=== PATIENT | male | born 2000 | race Caucasian/White ===

== ENCOUNTER 2024-03-26 05:56 | Emergency (ER) | payer SELFPAY ==
[2024-03-26 06:06] VITALS: BP 140/92; PULSE 110; O2SAT 99
[2024-03-26 06:09] VITALS: BP 127/87; PULSE 110; RESP 16; TEMP 36.8; O2SAT 97; BMI 17.6
--- NOTE | 2024-03-26 06:33 | ED.GENADULT ---
HPI - General Adult General Chief complaint: General Medical Stated complaint: drug abuse Time Seen by Provider: 03/26/24 06:33 Source: patient and EMS Mode of arrival: EMS Limitations: other (drug use) History of Present Illness HPI narrative: 23 y/o male presents to the ER via EMS for evaluation of drug use. He was found wandering the streets after using multiple substances including mushrooms, ana and alcohol. Patient states he was using the drugs and a house with his drug dealer who he knows well. Does not remember how he ended up outside walking on the streets. He does not remember how he got there. He admits to drinking a lot of alcohol. He denies any falls, trauma or any pain anywhere. He states he feels like he is starting to come down from the drugs. He wants to take a nap. He denies any suicidal or homicidal thoughts. States he has a history of bipolar and has been compliant with his medications. MD complaint: Drug use Onset (ago): hour(s) Relieving factors: none Exacerbating factors: none Associated symptoms: denies other symptoms Treatments prior to arrival: none Related Data Allergies Allergy/AdvReac Type Severity Reaction Status Date / Time amoxicillin Allergy Swelling Verified 03/26/24 06:13 Penicillins Allergy Swelling Verified 03/26/24 06:13 Review of Systems Review of Systems: Yes all other systems are reviewed and are negative [facility] Social History Social History Alcohol intake: current Alcohol intake frequency: a few times a week Smoked in Last 30 Days: Yes Use of substances other than those prescribed or required for medical reasons: Yes Advance Directives: Yes Advance Directives Information Provided: Yes Advance Directives on File: No Physical Exam ED Vital Signs: Vital Signs - 24 hr 03/26/24 06:09 03/26/24 09:25 Temperature 98.2 F 97.2 F Pulse Rate 110 H 100 Respiratory Rate 16 16 Blood Pressure 127/87 101/58 L Pulse Oximetry 97 97 Oxygen Delivery Method Room Air Room Air BMI result Body Mass Index 17.6 Appearance: Sleeping comfortably on the stretcher. Oriented X3. No acute distress. Head: normocephalic, atraumatic. Eyes: Pupils equal, round and reactive to light. ENT: Pharynx normal. No tonsillar swelling or exudate. Neck: Normal inspection. Neck supple. CVS: Normal heart rate and rhythm. Pulses normal. Respiratory: No respiratory distress. Breath sounds normal. Abdomen: Soft and nontender. +BS x4 Skin: Skin warm and dry. Normal skin color. Normal skin turgor. No rashes. Extremities: No lower extremity edema. No joint swelling. Neuro/psych: Oriented X 3. No motor deficit. No sensory deficit. CN II-XII intact. Normal speech and cognition. Medical Decision Making Medical Decision Making MDM Narrative: 23 yo male presents to the ER for evaluation after he was found wandering the streets after drinking and using multiple substances. He has been calm and cooperative in the emergency department he is oriented x3, speaking in complete sentences. No evidence of trauma on examination. He has been observed in the ER for 2 hours. He is clinically sober with normal speech and cognition. He has a steady gait. At this time is stable for discharge home. He was advised to stop using illicit substances and continue his psych meds. He denies any suicidal or homicidal thoughts. Lives in an apartment alone and has a safe place to go. He is stable for discharge. he declines wanting to speak with anyone from recovery. Differential Diagnosis Differential Diagnoses: The differential diagnosis associated with the presentation includes acute intoxication, substance induced mood disorder, PTSD, bipolar disorder, major depression with psychotic features Admission/Observation Consideration of admission/observation: Escalation of care including admission/observation considered Independent Historian Clinical information obtained from an independent historian. History obtained from or confirmed by: EMS Chronic Conditions Patient?s care impacted by: Other (chronic substance abuse) Social Determinants Patient?s care significantly limited by Social Determinants of Health including: Alcoholism and drug addiction in family, Problems related to primary support group and Other Social Determinant of Health Critical Care Time Critical Care Time Critical Care Time: No Discharge Plan Discharge Clinical Impression: Polysubstance abuse Patient Disposition: Home, Self-Care Instructions: Polysubstance Abuse (ED) Additional Instructions: DO NOT USE ILLICIT DRUGS Take all of your psych meds as directed If you develop new or worsening symptoms call 911 or come back to the ER for further evaluation. Interventions: ED Discharge Assessment Last Done: 03/26/24 09:25 Discharge Date/Time: 03/26/24 09:43 Print Language: Cymraes
[2024-03-26 09:25] VITALS: BP 101/58; PULSE 100; RESP 16; TEMP 36.2; O2SAT 97
== END 2024-03-26 09:43 | disposition home or self-care (01) ==
PROVIDERS: Emergency Provider Student in an Organized Health Care Education/Training Program
DX: F19.10 Other psychoactive substance abuse, uncomplicated (principal)
CPT/HCPCS: 99282; 99283

== ENCOUNTER 2024-06-16 18:21 | Inpatient (IN) | payer SELFPAY ==
--- NOTE | ~2024-06-16 | CT_ITS ---
EXAMINATION: CT HEAD WITHOUT CONTRAST CLINICAL INFORMATION: Altered mental status. Cocaine use. COMPARISON: None available. TECHNIQUE: Contiguous axial imaging was performed from the skull base to vertex without intravenous administration of contrast. This CT examination was performed using dose optimization techniques as appropriate, variously including the following: *Automated exposure control *Adjustment of mA and/or kV according to patient size (this includes techniques or standardized protocols for targeted exams where dose is matched to indication/reason for exam; i.e. extremities or head) *Use of iterative reconstruction technique DLP: 636 mGy-cm FINDINGS: There is no acute intracranial hemorrhage. There is no evidence of acute/subacute cerebral or cerebellar infarction. There is no midline shift or mass effect. No extra-axial fluid collection. The ventricles are normal in size. The orbits are symmetric and within normal limits. The visualized paranasal sinuses are clear. The mastoid air cells are clear. CT/CT head/brain wo IV con IMPRESSION: No acute intracranial abnormality.
--- NOTE | ~2024-06-16 | XR_ITS ---
EXAMINATION: XR CHEST CLINICAL INFORMATION: Fever. COMPARISON: None available. TECHNIQUE: Frontal view of the chest was obtained. FINDINGS: The lungs are clear. The cardiomediastinal silhouette is normal in size. There is no pleural effusion or pneumothorax. No acute osseous abnormality. XR/XR chest 1V IMPRESSION: No acute cardiopulmonary findings.
[2024-06-16] MEDS: LORazepam 2 MG/ML VIAL IVPUSH ×5 (18:32→21:01)
--- NOTE | 2024-06-16 18:32 | ED_ITS ---
HPI - General Adult General Chief complaint: ETOH/Substance Use Stated complaint: back pain, cocaine use Time Seen by Provider: 06/16/24 18:32 History of Present Illness ED Provider: Dania THOMPSON narrative: The patient is a 23-year-old male who was brought to the hospital by ambulance after being apparently found naked in the park by police. He was apparently out in the sun and a hot day. He said that he has been using cocaine and was initially awake and alert with paramedics. He told paramedics that he had been doing cocaine. He was cooperative with the paramedics who helped him come to the hospital. As soon as they arrived at the hospital he started having seizure-like activity and was profoundly diaphoretic. The patient says that he has from [place], [place]. He says that he has a history of bipolar disorder and has been prescribed many medications in the past but he is not currently taking any medications. Related Data Allergies Allergy/AdvReac Type Severity Reaction Status Date / Time amoxicillin Allergy Swelling Verified 06/16/24 18:37 Penicillins Allergy Swelling Verified 06/16/24 18:37 Review of Systems 2 Review of Systems: Yes all other systems are reviewed and are negative [facility] Social History Social History Alcohol intake: current Alcohol intake frequency: a few times a week Advance Directives: No Advance Directives Information Provided: No Physical Exam ED Vital Signs: Vital Signs - 24 hr 06/16/24 18:36 06/16/24 18:51 06/16/24 19:03 Temperature 101.8 F H Pulse Rate 97 156 H 154 H Respiratory Rate 22 H 27 H 27 H Blood Pressure 161/98 H 150/90 H 127/94 H Pulse Oximetry 98 93 Oxygen Delivery Method Room Air Room Air Room Air 06/16/24 19:39 06/16/24 21:17 Temperature 101.2 F H 101.0 F H Pulse Rate 144 H 129 H Respiratory Rate 28 H 22 H Blood Pressure 141/89 H Pulse Oximetry 97 97 Oxygen Delivery Method Room Air Room Air BMI result Body Mass Index 22.9 Const Other: When I 1st encountered the patient he was on the ambulance stretcher exhibiting abnormal movements that had some resemblance to seizure-like activity but it was not clear that that he was actually having a seizure. He seemed to possibly be making eye contact during the abnormal movements and he did not have any definite postictal phase. He was profoundly diaphoretic. He seemed confused. HENMT Other: No signs of trauma to the head or the face. Mucous membranes were not obviously dry. Tongue was midline. Face was symmetrical. Eyes Other: Pupils were dilated. Pupils are equal. Conjunctivae mildly injected. Neck Other: No JVD, no nuchal rigidity Resp Other: The patient was mildly tachypneic. Breath sounds were clear. Cardio Rate: tachycardic Rhythm: regular rhythm Heart sounds: S1 normal heart sound present and S2 normal heart sound present GI Other: Abdomen is soft and not apparently tender. Skin Other: The patient was profusely diaphoretic Neuro Other: The patient initially seemed to have some abnormal movements and a confused mental status. Later he seemed somewhat more coherent and was able to tell me that he was from [place], [place] and that he has been prescribed bipolar medications in the past. His pupils were dilated. No facial asymmetry. No significant slurring of his speech although there was very little speech content. He seemed to have symmetrical tone in his extremities. No lateralizing findings. Extrem Other: No signs of trauma to the extremities Medications Administered Discontinued Medications Generic Name Dose Route Start Last Admin Trade Name Freq PRN Reason Stop Dose Admin Sodium Chloride 1,000 mls @ 999 mls/hr 06/16/24 18:45 06/16/24 19:40 Ns IV 06/16/24 19:45 Infused .Q1H1M [place] Infusion Sodium Chloride 1,000 mls @ 999 mls/hr 06/16/24 19:45 06/16/24 20:57 Ns IV 06/16/24 20:45 Infused .Q1H1M [place] In[facility] Ceftriaxone Sodium 1 gm/ 50 mls @ 100 mls/hr 06/16/24 20:25 06/16/24 21:35 Sodium Chloride IV 06/16/24 20:54 Infused ONCE ONE Infusion Azithromycin 500 mg/ Sodium 250 mls @ 125 mls/hr 06/16/24 20:25 06/16/24 21:25 Chloride IV 06/16/24 22:24 125 mls/hr ONCE ONE Administration Lorazepam 2 mg 06/16/24 18:32 06/16/24 18:32 Lorazepam 2 Mg/Ml Vial IVPUSH 06/16/24 18:33 2 mg ONCE ONE Administration Lorazepam 2 mg 06/16/24 18:35 06/16/24 18:42 Lorazepam 2 Mg/Ml Vial IVPUSH 06/16/24 18:36 2 mg ONCE ONE Administration Lorazepam 2 mg 06/16/24 18:47 06/16/24 18:49 Lorazepam 2 Mg/Ml Vial IVPUSH 06/16/24 18:48 2 mg ONCE ONE Administration Lorazepam 2 mg 06/16/24 19:42 06/16/24 19:54 Lorazepam 2 Mg/Ml Vial IVPUSH 06/16/24 19:43 2 mg ONCE ONE Administration Lorazepam 2 mg 06/16/24 20:30 06/16/24 21:01 Lorazepam 2 Mg/Ml Vial IVPUSH 06/16/24 20:31 2 mg ONCE ONE Administration Medical Decision Making Medical Decision Making [facility] Narrative: The patient is a 23-year-old male who presents after being [place] in the heat and apparently having used cocaine. There was a brief episode of abnormal movements that suggested possible seizure- like activity although it was not clear was an actual seizure. His pupils are dilated. He is tachycardic and was hypertensive and hyperthermic. The patient was seen promptly and given multiple doses of IV lorazepam and IV fluids. He was given ice packs for cooling. Labs showed the patient was acidotic with a venous pH of 7.09. His metabolic panel showed a carbon dioxide of 14, an anion gap of 35, a BUN 17, and creatinine of 1.75. The patient was kept on a monitor. He remained tachycardic. He was started on IV antibiotics although I suspect that his fever is more of a cocaine reaction rather than an indication of an infection. His lactate was normal. Repeat labs were done a couple of hours after his initial labs. His acidosis seemed to entirely resolved. His repeat pH on venous blood gas was 7.47. A repeat basic metabolic panel showed an improvement of his carbon dioxide from 14 to 20. His anion gap of 35 resolved. His repeat anion gap was 15. The initial finding of a possible acute kidney injury also resolved. His repeat creatinine was 0.97. Repeat BUN 14. Repeat CPK 319, repeat troponin 20.7. The patient was clearly sedated after multiple doses of IV lorazepam. He will be admitted for further care. Lab Data 06/16/24 18:41 06/16/24 21:24 Labs: Lab Results 06/16/24 06/16/24 06/16/24 Range/Units 18:33 18:41 18:45 WBC 24.5 H (4.8-10.8) X10*3/uL RBC 5.52 (4.60-5.80) X10*6/uL Hgb 17.0 (14.0-18.0) g/dl Hct 50.8 (42.0-52.0) % MCV 92.0 (80.0-98.0) fL MCH 30.8 (27.0-33.0) pg MCHC 33.5 (31.0-36.0) g/dl RDW 11.3 (11.0-16.0) % Plt Count 426 H (160-400) X10*3/uL MPV 9.8 (9.4-12.4) fL Immature Gran % (Auto) 2.1 H (0.0-0.4) % Neut % (Auto) 76.6 H (45-73) % Lymph % (Auto) 11.9 L (20-40) % Benzie % (Auto) 8.9 (2-11) % Eos % (Auto) 0.1 (0-4) % Baso % (Auto) 0.4 (0-2) % Lymph # (Auto) 2.9 (1.2-4.9) X10*3/uL Benzie # (Auto) 2.2 H (0.1-1.2) X10*3/uL Eos # (Auto) 0.0 (0.0-0.4) X10*3/uL Baso # (Auto) 0.1 (0.0-0.2) X10*3/uL Abs Immat Gran (auto) 0.51 H (0.00-0.03) X10*3/uL Absolute Neuts (auto) 18.8 H (2.0-8.3) x10*3/uL Absolute Nucleated RBC 0.000 (0.0-0.012) X10*3/uL Nucleated RBC % (auto) 0.0 (0.0-0.2) /100WBC Smear Tech's Comments VERIFIED PT 14.4 H (11.1-13.3) SEC INR 1.2 H (0.9-1.1) VBG pH 7.09 L* (7.32-7.43) VBG pCO2 39 mmHg VBG pO2 75 mmHg VBG HCO3 12 L (22-26) mmol/L VBG O2 Saturation 88.0 % VBG Base Excess -16.6 mmol/L Sodium 146 H (135-145) mmol/L Potassium 4.1 (3.3-5.1) mmol/L Chloride 101 (96-108) mmol/L Carbon Dioxide 14 L (22-29) mmol/L Anion Gap 35 H (12-20) BUN 17 H (9-16) mg/dL Creatinine 1.75 H (0.5-1.4) mg/dL Estim Creat Clear Calc 62.7 Estimated GFR 48 POC Glucose 238 H (60-115) mg/dL Random Glucose 245 H (60-115) mg/dL Osmolality (281-305) mosm/kg Lactic Acid (0.5-2.0) mmol/L Calcium 11.3 H (8.4-10.2) mg/dL Magnesium 2.3 (1.6-2.6) mg/dL Total Bilirubin 0.5 (0.0-1.0) mg/dL Direct Bilirubin 0.2 (0.0-0.5) mg/dL AST 52 H (5-37) U/L ALT 35 (0-40) U/L Alkaline Phosphatase 102 (39-117) U/L Total Creatine Kinase 215 H (38-174) U/L Troponin I High Sens 7.5 (<3.5-35.0) ng/L Total Protein 8.9 H (6.5-8.0) g/dL Albumin 5.2 H (3.5-5.0) g/dL Salicylates (15-30) mg/dL Acetaminophen (<30) mcg/mL Ethyl Alcohol < 10 mg/dL 06/16/24 06/16/24 06/16/24 Range/Units 20:06 21:24 21:26 WBC (4.8-10.8) X10*3/uL RBC (4.60-5.80) X10*6/uL Hgb (14.0-18.0) g/dl Hct (42.0-52.0) % MCV (80.0-98.0) fL MCH (27.0-33.0) pg MCHC (31.0-36.0) g/dl RDW (11.0-16.0) % Plt Count (160-400) X10*3/uL MPV (9.4-12.4) fL Immature Gran % (Auto) (0.0-0.4) % Neut % (Auto) (45-73) % Lymph % (Auto) (20-40) % Benzie % (Auto) (2-11) % Eos % (Auto) (0-4) % Baso % (Auto) (0-2) % Lymph # (Auto) (1.2-4.9) X10*3/uL Benzie # (Auto) (0.1-1.2) X10*3/uL Eos # (Auto) (0.0-0.4) X10*3/uL Baso # (Auto) (0.0-0.2) X10*3/uL Abs Immat Gran (auto) (0.00-0.03) X10*3/uL Absolute Neuts (auto) (2.0-8.3) x10*3/uL Absolute Nucleated RBC (0.0-0.012) X10*3/uL Nucleated RBC % (auto) (0.0-0.2) /100WBC Smear Tech's Comments PT (11.1-13.3) SEC INR (0.9-1.1) VBG pH 7.47 H (7.32-7.43) VBG pCO2 25 mmHg VBG pO2 178 mmHg VBG HCO3 19 L (22-26) mmol/L VBG O2 Saturation 99.0 % VBG Base Excess -2.9 mmol/L Sodium 143 (135-145) mmol/L Potassium 3.8 (3.3-5.1) mmol/L Chloride 112 H (96-108) mmol/L Carbon Dioxide 20 L (22-29) mmol/L Anion Gap 15 (12-20) BUN 14 (9-16) mg/dL Creatinine 0.97 (0.5-1.4) mg/dL Estim Creat Clear Calc 113.2 Estimated GFR > 60 POC Glucose (60-115) mg/dL Random Glucose 112 (60-115) mg/dL Osmolality 302 (281-305) mosm/kg Lactic Acid 1.3 (0.5-2.0) mmol/L Calcium 8.9 D (8.4-10.2) mg/dL Magnesium (1.6-2.6) mg/dL Total Bilirubin (0.0-1.0) mg/dL Direct Bilirubin (0.0-0.5) mg/dL AST (5-37) U/L ALT (0-40) U/L Alkaline Phosphatase (39-117) U/L Total Creatine Kinase 319 H (38-174) U/L Troponin I High Sens 20.7 D (<3.5-35.0) ng/L Total Protein (6.5-8.0) g/dL Albumin (3.5-5.0) g/dL Salicylates < 5.0 L (15-30) mg/dL Acetaminophen < 3 (<30) mcg/mL Ethyl Alcohol mg/dL Critical Care Time Critical Care Time Critical Care Time: Yes Total Critical Care Time: 35 Attestation: The patient was critically ill with a high probability of imminent or life- threatening deterioration. ?I spent greater than 30 minutes of discontinuous time evaluating the patient, delivering critical care at the bedside, discussing evaluating data with consultants. ?Critical care time does not include time spent performing separately billable procedures or teaching. ?Time spent performing critical care with 35 minutes. Discharge Plan Discharge Clinical Impression: Adverse effect of sympathomimetics, Cocaine use, Metabolic acidosis, Hyperthermia Patient Disposition: Admitted As Inpatient
--- NOTE | 2024-06-16 18:33 | ECG_ITS ---
Test Reason : TACHY Blood Pressure : / mmHG Vent. Rate : 152 BPM Atrial Rate : 153 BPM P-R Int : 096 ms QRS Dur : 114 ms QT Int : 338 ms P-R-T Axes : 000 094 052 degrees QTc Int : 537 ms Sinus tachycardia with short IA Rightward axis Cannot rule out Anterior infarct , age undetermined Abnormal ECG No previous ECGs available Referred By: Beny Najera Electronically Signed By:BENJI DANIELSON MD
[2024-06-16] MEDS: 0.9 % Sodium Chloride 1,000 ML 999 ML IV ×2 (18:35→19:55)
[2024-06-16 18:36] VITALS: BP 148/86; BP 161/98; PULSE 160; PULSE 97; RESP 22; O2SAT 98; BMI 22.9
[2024-06-16 18:51] VITALS: BP 150/90; PULSE 156; RESP 27; O2SAT 93
[2024-06-16 18:52] LABS: Basophils Absolute Auto 0.1 X10*3/uL (0.0-0.2); Basophils Percent Auto 0.4 % (0-2); Eosinophils Percent Auto 0.1 % (0-4); Hematocrit 50.8 % (42.0-52.0); Imm Gran Abs Auto 0.51 X10*3/uL (0.00-0.03); Imm Gran Pct Auto 2.1 % (0.0-0.4); Lymphocytes Absolute Auto 2.9 X10*3/uL (1.2-4.9); Lymphocytes Percent Auto 11.9 % (20-40); MANUAL DIFF FLAG SCAN; Mean Corpuscular HGB Conc 33.5 g/dl (31.0-36.0); Mean Corpuscular Hemoglobin 30.8 pg (27.0-33.0); Mean Platelet Volume 9.8 fL (9.4-12.4); Monocytes Absolute Auto 2.2 X10*3/uL (0.1-1.2); Monocytes Percent Auto 8.9 % (2-11); Neutrophils Absolute Auto 18.8 x10*3/uL (2.0-8.3); Neutrophils Percent Auto 76.6 % (45-73); Platelet Count 426 X10*3/uL (160-400); Red Blood Count 5.52 X10*6/uL (4.60-5.80); Red Cell Distribution Width 11.3 % (11.0-16.0); SCAN SMEAR FLAG 1
[2024-06-16 18:57] LABS: INTERNATIONAL NORM RATIO 1.2 (0.9-1.1); Prothrombin Time 14.4 SEC (11.1-13.3); Venous Blood Gas Refer to POC result
[2024-06-16 18:57] LABS: VBG Base Excess -16.6 mmol/L; VBG HCO3 12 mmol/L (22-26); VBG pCO2 39 mmHg; VBG pH 7.09 (7.32-7.43); VBG pO2 75 mmHg
[2024-06-16 19:03] VITALS: BP 127/94; PULSE 154; RESP 27; TEMP 38.8
[2024-06-16 19:14] LABS: SLIDE REVIEW VERIFIED; White Blood Count 24.5 X10*3/uL (4.8-10.8)
[2024-06-16 19:18] LABS: Troponin-I High Sensitivity 7.5 ng/L (<3.5-35.0)
--- NOTE | 2024-06-16 19:31 | PC.NURSE ---
Pt c&a requesting me to fix the TV in room. Pt placed back on bedside monitor. Pt changed into hospital attire. Plan of care ongoing.
--- NOTE | 2024-06-16 19:37 | MHC.EDTECH ---
Patient did not came with any clothing ,was given hospital attire ,Patient is aware of were he is .
[2024-06-16 19:39] VITALS: BP 141/89; PULSE 144; RESP 28; TEMP 38.4; O2SAT 97
[2024-06-16 19:42] LABS: Alanine Aminotransferase 35 U/L (0-40); Albumin Level 5.2 g/dL (3.5-5.0); Alkaline Phosphatase 102 U/L (39-117); Anion Gap 35 (12-20); Aspartate Amino Transferase 52 U/L (5-37); Bilirubin Direct 0.2 mg/dL (0.0-0.5); Bilirubin Total 0.5 mg/dL (0.0-1.0); Blood Urea Nitrogen 17 mg/dL (9-16); Calcium 11.3 mg/dL (8.4-10.2); Carbon Dioxide 14 mmol/L (22-29); Chloride 101 mmol/L (96-108); Creatinine Clr Calc Pharmacy 62.7; Estimated Glomerular Filt Rate 48; Glucose Random 245 mg/dL (60-115); Magnesium 2.3 mg/dL (1.6-2.6); Potassium 4.1 mmol/L (3.3-5.1); Sodium 146 mmol/L (135-145); Total Protein 8.9 g/dL (6.5-8.0)
--- NOTE | 2024-06-16 19:43 | PC.NURSE ---
Provider Tor aware of pts vitals HR 135, R28 T101.2. Plan of care ongoing.
[2024-06-16 20:03] LABS: Ethanol < 10 mg/dL
--- NOTE | 2024-06-16 20:04 | PC.NURSE ---
Pt medicated per mar. Cold packs placed on pt per provider Tor. Plan of care ongoing.
--- NOTE | 2024-06-16 20:16 | MHC.EDTECH ---
Patient blood and and both sets of culture and lactic acid all sent to lab ,Patient belonging list done .
[2024-06-16 20:18] LABS: Glucose, Whole Blood 238 mg/dL (60-115)
[2024-06-16 20:28] LABS: Lactic Acid 1.3 mmol/L (0.5-2.0)
[2024-06-16] MEDS: cefTRIAXone sodium 1 GM in 0.9 % Sodium Chloride 50 ML IV (21:03)
--- NOTE | 2024-06-16 21:09 | PC.NURSE ---
Pt medicated per jan. Pt pulling at wires and blanket and attempting to put them in his mouth. Pt also attempting to get out of bed. Pt redirected back into bed. Plan of care ongoing.
[2024-06-16 21:17] VITALS: PULSE 129; RESP 22; TEMP 38.3; O2SAT 97
--- NOTE | 2024-06-16 21:24 | MHC.EDTECH ---
PATIENT REPEATED LABS DRAWN AND SENT TO LAB ,VITALS TAKEN ,PATIENT STILL HAS A VERY HIGH TEMP ON 101 .0 RECTALLY .
[2024-06-16] MEDS: Azithromycin 500 MG in 0.9 % Sodium Chloride 250 ML 125 MG IV (21:25)
[2024-06-16 21:34] LABS: Venous Blood Gas Refer to POC result
[2024-06-16 21:34] LABS: VBG Base Excess -2.9 mmol/L; VBG HCO3 19 mmol/L (22-26); VBG pCO2 25 mmHg; VBG pH 7.47 (7.32-7.43); VBG pO2 178 mmHg
[2024-06-16 21:59] LABS: Acetaminophen LAB < 3 mcg/mL (<30); Anion Gap 15 (12-20); Blood Urea Nitrogen 14 mg/dL (9-16); Calcium 8.9 mg/dL (8.4-10.2); Carbon Dioxide 20 mmol/L (22-29); Chloride 112 mmol/L (96-108); Creatinine Clr Calc Pharmacy 113.2; Estimated Glomerular Filt Rate > 60; Glucose Random 112 mg/dL (60-115); Potassium 3.8 mmol/L (3.3-5.1); Salicylate < 5.0 mg/dL (15-30); Sodium 143 mmol/L (135-145); Troponin-I High Sensitivity 20.7 ng/L (<3.5-35.0)
[2024-06-16 22:07] LABS: Osmolality, Serum 302 mosm/kg (281-305)
--- NOTE | 2024-06-16 22:13 | P.HPHOSP_ITS ---
History of Present Illness Date of Service: 06/16/24 Attending physician on admission: Anamika Holguin Chief Complaint: Cocaine overdose Pt is a 23-year-old male with a PMH significant for?polysubstance use disorder and bipolar disorder not on home meds who presents to the ED via ambulance [place] the park by police. Patient currently somnolent but arousable, but unable to provide meaningful HPI which is instead obtained from chart and provider review. Patient was apparently initially awake, alert, and cooperative with paramedics. Reportedly had been doing cocaine and was feeling hot as he was in the sun so decided to disrobe. As soon as patient presented to the hospital he began having seizure-like activity and was noted to be profoundly diaphoretic. ED clinician noted he continued to make eye contact during seizure-like activity without any definite postictal phase. ?In the ED, patient was noted to be tachycardic up to 156, tachypneic up to 28, hyperthermic up to 101.8, and hypertensive up to 161/98. Patient was given multiple doses of IV Ativan, IV fluids, and given ice packs for cooling. Initial labs were significant for leukocytosis of 24.5, venous pH of 7.09, bicarb of 14, anion gap of 35, creatinine 1.75, AST 52, CPK 215, and initial troponin 7.5 with repeat with delta change to 20.7. CXR showed no acute cardiopulmonary findings. CT?of head negative for acute intracranial pathology. EKG demonstrated sinus tachycardia of 152 without evidence of significant ST elevations or depressions. Pt was treated with Ativan 2 mg IV x5 doses, IVF ceftriaxone, and azithromycin. Pt will be admitted to the hospital for treatment and further evaluation of acute toxic metabolic encephalopathy in the setting of cocaine intoxication. Review of Systems 2 Review of Systems: Unable to obtain due to patient's mentation [facility] Medical History (Updated 06/16/24 @ 22:52 by BERNADETTE Ingram) Bipolar disorder Polysubstance use disorder Social History Alcohol intake: current Alcohol intake frequency: a few times a week Advance Directives: No Advance Directives Information Provided: No Meds Allergies Allergy/AdvReac Type Severity Reaction Status Date / Time amoxicillin Allergy Swelling Verified 06/16/24 18:37 Penicillins Allergy Swelling Verified 06/16/24 18:37 Active Medications: Current Medications Acetaminophen (Acetaminophen 325 Mg Tablet) 650 mg PO Q6H PRN PRN Reason: Pain, Mild (Pain Scale 1-3), fever or headache Acetaminophen (Acetaminophen Supp 650 Mg Supp.Rect) 650 mg [place] Q6H PRN PRN Reason: Pain, Mild (Pain Scale 1-3), fever or headache Calcium Carbonate (Calcium Carbonate 750 Mg Tab.Chew) 750 mg PO Q4H PRN PRN Reason: Heartburn Enoxaparin Sodium (Enoxaparin Sodium 40 Mg/0.4 Ml Syringe) 40 mg SUBCUT Q24H [facility] Azithromycin 500 mg/ Sodium (Chloride) 250 mls @ 125 mls/hr IV ONCE ONE Stop: 06/16/24 22:24 Last Admin: 06/16/24 21:25 Dose: 125 mls/hr Magnesium Hydroxide (Milk Of Magnesia 30 Ml Oral.Susp) 30 ml PO DAILY PRN PRN Reason: Constipation Melatonin (Melatonin 3 Mg Tablet) 6 mg PO BEDTIME PRN PRN Reason: Insomnia Ondansetron HCl (Ondansetron Hcl 4 Mg/2 Ml Vial) 4 mg IVPUSH Q8H PRN PRN Reason: Nausea and Vomiting Sodium Chloride (0.9 % Sodium Chloride Flush 3 Ml Syringe) 3 ml IVFLUSH QSHIFT [facility] Physical Exam 2 Vital Signs and Narrative: Vital Signs: Last Vital Signs Temp 101.0 F H 06/16/24 21:17 Pulse 129 H 06/16/24 21:17 Resp 22 H 06/16/24 21:17 BP 141/89 H 06/16/24 19:39 Pulse Ox 97 06/16/24 21:17 O2 Del Method Room Air 06/16/24 21:17 BMI result Body Mass Index 22.9 General: Somnolent but arousable to painful stimuli. Not fully awakening to answer questions. In no acute distress. Resp: CTA bilaterally CVS: S1, S2, tachycardic GI: +BS, NT, no distention Skin: Warm, dry Neuro: Cranial nerves II-XII grossly intact bilaterally. Motor grossly intact bilaterally Extremities: No edema Results Labs 06/16/24 18:41 06/16/24 21:24 Labs: Laboratory Results - last 24 hr 06/16/24 06/16/24 06/16/24 18:33 18:41 18:45 MCV 92.0 MCH 30.8 MCHC 33.5 RDW 11.3 Plt Count 426 H MPV 9.8 Immature Gran % (Auto) 2.1 H Neut % (Auto) 76.6 H Lymph % (Auto) 11.9 L [place] % (Auto) 8.9 Eos % (Auto) 0.1 Baso % (Auto) 0.4 Lymph # (Auto) 2.9 [place] # (Auto) 2.2 H Eos # (Auto) 0.0 Baso # (Auto) 0.1 Abs Immat Gran (auto) 0.51 H Absolute Neuts (auto) 18.8 H Absolute Nucleated RBC 0.000 Nucleated RBC % (auto) 0.0 Smear Tech's Comments VERIFIED PT 14.4 H INR 1.2 H VBG pH 7.09 L* VBG pCO2 39 VBG pO2 75 VBG HCO3 12 L VBG O2 Saturation 88.0 VBG Base Excess -16.6 Anion Gap 35 H Estim Creat Clear Calc 62.7 Estimated GFR 48 POC Glucose 238 H Random Glucose 245 H Osmolality Lactic Acid Calcium 11.3 H Magnesium 2.3 Total Bilirubin 0.5 Direct Bilirubin 0.2 AST 52 H ALT 35 Alkaline Phosphatase 102 Total Creatine Kinase 215 H Troponin I High Sens 7.5 Total Protein 8.9 H Albumin 5.2 H Salicylates Acetaminophen Ethyl Alcohol < 10 06/16/24 06/16/24 06/16/24 20:06 21:24 21:26 MCV MCH MCHC RDW Plt Count MPV Immature Gran % (Auto) Neut % (Auto) Lymph % (Auto) [place] % (Auto) Eos % (Auto) Baso % (Auto) Lymph # (Auto) [place] # (Auto) Eos # (Auto) Baso # (Auto) Abs Immat Gran (auto) Absolute Neuts (auto) Absolute Nucleated RBC Nucleated RBC % (auto) Smear Tech's Comments PT INR VBG pH 7.47 H VBG pCO2 25 VBG pO2 178 VBG HCO3 19 L VBG O2 Saturation 99.0 VBG Base Excess -2.9 Anion Gap 15 Estim Creat Clear Calc 113.2 Estimated GFR > 60 POC Glucose Random Glucose 112 Osmolality 302 Lactic Acid 1.3 Calcium 8.9 D Magnesium Total Bilirubin Direct Bilirubin AST ALT Alkaline Phosphatase Total Creatine Kinase 319 H Troponin I High Sens 20.7 D Total Protein Albumin Salicylates < 5.0 L Acetaminophen < 3 Ethyl Alcohol Imaging Radiologist's Impressions: Impressions Head CT 06/16/24 19:35 IMPRESSION: No acute intracranial abnormality. Chest X-Ray 06/16/24 19:50 IMPRESSION: No acute cardiopulmonary findings. Assessment and Plan (1) Hyperthermia: Status: Acute (2) Metabolic acidosis: Status: Acute (3) Acute metabolic encephalopathy: Status: Acute Plan Pt is a 23-year-old male with a PMH significant for?polysubstance use disorder and bipolar disorder not on home meds who presents to the ED via ambulance after being [place] naked [place] the park by police. Pt will be admitted to the hospital for treatment and further evaluation of acute toxic metabolic encephalopathy in the setting of cocaine intoxication. Acute toxic metabolic encephalopathy In the setting of cocaine intoxication Patient treated with Ativan, IVF Addiction medicine consult Monitor mentation Leukocytosis WBCs elevated at 24.5 at time of presentation Likely reactionary, in the setting of cocaine intoxication No clear indication of active infection or aspiration, no indication of sepsis Tachycardia, tachypnea, and fever all secondary to cocaine intoxication; lactic acid WNL at 0.9 Patient treated with IVF and started on broad-spectrum antibiotics in the ED Patient empirically treated with ceftriaxone and azithromycin, started 06/16/2024 Continuation of empiric antibiotics pending repeat labs and patient's clinical picture tomorrow Follow CBC Hyperthermia Patient with elevated temperature up to 101.8 Likely cocaine induced Patient initially cooled with ice packs Follow temperature, cool as necessary Elevated troponins Initial troponin 7.5 with repeat 20.7 Likely secondary to cocaine intoxication Echocardiogram Monitor on telemetry Repeat troponin in the morning Starvation ketoacidosis, resolved Venous pH 7.09 time of presentation with repeat 7.47 after fluids Likely secondary to cocaine intoxication VEE, resolved Initial creatinine 1.75 at time of presentation Repeat creatinine 0.97 after IVF Follow BMP Bipolar disorder, unspecified No longer on home mood stabilizers Full Code Attending:?Dr. Holguin DVT Prophylaxis: Lovenox Pt will require a hospitalization of at least two nights for treatment of?acute toxic metabolic encephalopathy in the setting of cocaine intoxication. Given patient's numerous metabolic and vital abnormalities, patient require hospitalization for close monitoring cardiac function, labs, and vital signs. Quality Stroke Does the patient have a stroke diagnosis?: No VTE Prior VTE?: No VTE Risk Level:: Medical - moderate - high VTE Device Contraindication: Treatment Not Indicated VTE Drug Contraindication: N/A - Med Ordered
[2024-06-16] MEDS: Acetaminophen 1,000 MG/100 ML PIGGYBACK 400 MG IV (23:00)
[2024-06-16] MEDS: Enoxaparin Sodium 40 MG/0.4 ML SYRINGE SUBCUT (23:00)
[2024-06-16] MEDS: Lactated Ringers 1,000 ML 125 ML IVCONT (23:30)
[2024-06-16 23:45] VITALS: BP 116/64; PULSE 104; RESP 22; TEMP 37.1
[2024-06-17 00:01] VITALS: BP 116/65; PULSE 105; RESP 20; TEMP 37.2; O2SAT 96
[2024-06-17 01:12] VITALS: BP 113/61; PULSE 99; RESP 18; TEMP 37.1; O2SAT 99
[2024-06-17 02:25] VITALS: BMI 22.1
[2024-06-17 03:23] VITALS: BP 126/67; PULSE 103; RESP 18; TEMP 36.3; O2SAT 97
[2024-06-17 05:13] LABS: Appearance Urine Cloudy; Color Urine Yellow; Glucose Urine UA Negative (Negative); Leukocyte Esterase Urine Negative (Negative); Nitrite Urine Negative (Negative); PH 5.5 (5.0-9.0); Specific Gravity - Urine 1.025 (1.005-1.025); UMIC TRIGGER UACC YES; Urine Blood Moderate (2+) (Negative); Urine Ketones 40 mg/dL (Negative); Urine Protein 300 (3+) mg/dL (Neg-Trace)
[2024-06-17 05:21] LABS: Bacteria Urine None Seen (None Seen); Granular Casts Urine Present; RBC Urine 0-2 /HPF (0-2); Squamous Epithelial Cell Urine >20 /HPF (0-2); WBC Urine 0-5 /HPF (0-5)
[2024-06-17 05:23] LABS: Amphetamine Screen Urine Not Detected (Not Detect); Barbiturates, Urine Not Detected (Not Detect); Benzodiazepines Screen Urine Not Detected (Not Detect); Buprenorphine Scr Not Detected (Not Detect); Cannabinoid Screen Urine POSITIVE (Not Detect); Cocaine Screen Urine POSITIVE (Not Detect); Fentanyl, urine Not Detected (Not Detect); Methadone Screen, Urine Not Detected (Not Detect); Opiate Screen Urine Not Detected (Not Detect); Oxycodone Screen Urine Not Detected (Not Detect); Phencyclidine Screen Urine Not Detected (Not Detect)
[2024-06-17] MEDS: Acetaminophen 325 MG TABLET 650 MG PO ×2 (05:40→15:49)
[2024-06-17 06:53] LABS: MANUAL DIFF FLAG NO
[2024-06-17 07:04] LABS: Basophils Percent Auto 0.3 % (0-2); Eosinophils Percent Auto 0.3 % (0-4); Hematocrit 38.5 % (42.0-52.0); Hemoglobin 13.2 g/dl (14.0-18.0); Imm Gran Abs Auto 0.05 X10*3/uL (0.00-0.03); Imm Gran Pct Auto 0.5 % (0.0-0.4); Lymphocytes Absolute Auto 2.7 X10*3/uL (1.2-4.9); Lymphocytes Percent Auto 25.5 % (20-40); Mean Corpuscular HGB Conc 34.3 g/dl (31.0-36.0); Mean Corpuscular Hemoglobin 30.8 pg (27.0-33.0); Mean Corpuscular Volume 89.7 fL (80.0-98.0); Mean Platelet Volume 10.2 fL (9.4-12.4); Monocytes Absolute Auto 1.3 X10*3/uL (0.1-1.2); Monocytes Percent Auto 12.2 % (2-11); Neutrophils Absolute Auto 6.5 x10*3/uL (2.0-8.3); Neutrophils Percent Auto 61.2 % (45-73); Platelet Count 272 X10*3/uL (160-400); Red Blood Count 4.29 X10*6/uL (4.60-5.80); Red Cell Distribution Width 11.9 % (11.0-16.0); White Blood Count 10.6 X10*3/uL (4.8-10.8)
[2024-06-17 07:33] LABS: Anion Gap 13 (12-20); Blood Urea Nitrogen 10 mg/dL (9-16); Calcium 9.3 mg/dL (8.4-10.2); Carbon Dioxide 23 mmol/L (22-29); Chloride 109 mmol/L (96-108); Creatinine Clr Calc Pharmacy 132.5; Estimated Glomerular Filt Rate > 60; Glucose Random 82 mg/dL (60-115); Potassium 3.7 mmol/L (3.3-5.1); Sodium 141 mmol/L (135-145)
[2024-06-17 07:37] LABS: Troponin-I High Sensitivity 10.6 ng/L (<3.5-35.0)
[2024-06-17 08:00] VITALS: BP 130/76; PULSE 79; RESP 17; TEMP 36.4; O2SAT 97
--- NOTE | 2024-06-17 08:25 | PHA.MEDREC ---
Pharmacy Consult ? Medication Reconciliation Pharmacy has completed the medication reconciliation. Attempted to speak with patient to confirm his medications. He was able to verbalize propranolol and risperidone but no dose or frequency. I asked about Buspar and Abilify but he was unsure and then fell asleep. I used claim history to see what he has been consistently refilling and added to med rec.
[2024-06-17] MEDS: Lactated Ringers 1,000 ML 125 ML IVCONT (09:04)
--- NOTE | 2024-06-17 10:24 | HO.PM.IMPN ---
Subjective Subjective Date of Service: 06/17/24 Review of Systems Follow up encephalopathy still somewhat confused sitting up in bed Physical Exam Vital Signs: Vital Signs: Last Vital Signs Temp 97.6 F 06/17/24 08:00 Pulse 79 06/17/24 08:00 Resp 17 06/17/24 08:00 BP 130/76 06/17/24 08:00 Pulse Ox 97 06/17/24 08:00 O2 Del Method Room Air 06/17/24 08:00 BMI result Body Mass Index 22.1 Appearing in no acute distress lung sounds are clear to auscultation heart regular rate rhythm, clear S1, S2 positive bowel sounds, abdomen is soft, nontender neuro patient is alert x3, no focal deficits Objective Data Active Medications Acetaminophen (Acetaminophen 325 Mg Tablet) 650 mg PO Q6H PRN PRN Reason: Pain, Mild (Pain Scale 1-3), fever or headache Last Admin: 06/17/24 05:40 Dose: 650 mg Documented By: MARCELL Acetaminophen (Acetaminophen Supp 650 Mg Supp.Rect) 650 mg [place] Q6H PRN PRN Reason: Pain, Mild (Pain Scale 1-3), fever or headache Calcium Carbonate (Calcium Carbonate 750 Mg Tab.Chew) 750 mg PO Q4H PRN PRN Reason: Heartburn Enoxaparin Sodium (Enoxaparin Sodium 40 Mg/0.4 Ml Syringe) 40 mg SUBCUT Q24H [facility] Last Admin: 06/16/24 23:00 Dose: 40 mg Documented By: KEISHA Lactated Ringer's (Lr) 1,000 mls @ 125 mls/hr IVCONT .Q8H [facility] Last Admin: 06/17/24 09:04 Dose: 125 mls/hr Documented By: ERUM Magnesium Hydroxide (Milk Of Magnesia 30 Ml Oral.Susp) 30 ml PO DAILY PRN PRN Reason: Constipation Melatonin (Melatonin 3 Mg Tablet) 6 mg PO BEDTIME PRN PRN Reason: Insomnia Ondansetron HCl (Ondansetron Hcl 4 Mg/2 Ml Vial) 4 mg IVPUSH Q8H PRN PRN Reason: Nausea and Vomiting Sodium Chloride (0.9 % Sodium Chloride Flush 3 Ml Syringe) 3 ml IVFLUSH QSHIFT [facility] Last Admin: 06/17/24 08:01 Dose: Not Given Documented By: ERUM Non-Admin Reason: IV Running Labs 06/17/24 05:42 06/17/24 05:42 Labs: Laboratory Results - last 24 hr 06/16/24 06/16/24 06/16/24 18:33 18:41 18:45 MCV 92.0 MCH 30.8 MCHC 33.5 RDW 11.3 Plt Count 426 H MPV 9.8 Immature Gran % (Auto) 2.1 H Neut % (Auto) 76.6 H Lymph % (Auto) 11.9 L [place] % (Auto) 8.9 Eos % (Auto) 0.1 Baso % (Auto) 0.4 Lymph # (Auto) 2.9 [place] # (Auto) 2.2 H Eos # (Auto) 0.0 Baso # (Auto) 0.1 Abs Immat Gran (auto) 0.51 H Absolute Neuts (auto) 18.8 H Absolute Nucleated RBC 0.000 Nucleated RBC % (auto) 0.0 Smear Tech's Comments VERIFIED PT 14.4 H INR 1.2 H VBG pH 7.09 L* VBG pCO2 39 VBG pO2 75 VBG HCO3 12 L VBG O2 Saturation 88.0 VBG Base Excess -16.6 Anion Gap 35 H Estim Creat Clear Calc 62.7 Estimated GFR 48 POC Glucose 238 H Random Glucose 245 H Osmolality Lactic Acid Calcium 11.3 H Magnesium 2.3 Total Bilirubin 0.5 Direct Bilirubin 0.2 AST 52 H ALT 35 Alkaline Phosphatase 102 Total Creatine Kinase 215 H Troponin I High Sens 7.5 Total Protein 8.9 H Albumin 5.2 H Urine Color Urine Appearance Urine pH Ur Specific [place] Urine Protein Urine Glucose (UA) Urine Ketones Urine Blood Urine Nitrite Ur Leukocyte Esterase Urine RBC Urine WBC Ur Squamous Epith Cells Urine Bacteria Hyaline Casts Granular Casts Salicylates Urine Opiates Screen Ur Buprenorphine Scrn Ur Oxycodone Screen Urine Methadone Screen Urine Fentanyl Screen Acetaminophen Ur Barbiturates Screen Ur Phencyclidine Scrn Ur Amphetamines Screen U Benzodiazepines Scrn Urine Cocaine Screen U Marijuana (THC) Screen Ethyl Alcohol < 10 06/16/24 06/16/24 06/16/24 20:06 21:24 21:26 MCV MCH MCHC RDW Plt Count MPV Immature Gran % (Auto) Neut % (Auto) Lymph % (Auto) [place] % (Auto) Eos % (Auto) Baso % (Auto) Lymph # (Auto) [place] # (Auto) Eos # (Auto) Baso # (Auto) Abs Immat Gran (auto) Absolute Neuts (auto) Absolute Nucleated RBC Nucleated RBC % (auto) Smear Tech's Comments PT INR VBG pH 7.47 H VBG pCO2 25 VBG pO2 178 VBG HCO3 19 L VBG O2 Saturation 99.0 VBG Base Excess -2.9 Anion Gap 15 Estim Creat Clear Calc 113.2 Estimated GFR > 60 POC Glucose Random Glucose 112 Osmolality 302 Lactic Acid 1.3 Calcium 8.9 D Magnesium Total Bilirubin Direct Bilirubin AST ALT Alkaline Phosphatase Total Creatine Kinase 319 H Troponin I High Sens 20.7 D Total Protein Albumin Urine Color Urine Appearance Urine pH Ur Specific [place] Urine Protein Urine Glucose (UA) Urine Ketones Urine Blood Urine Nitrite Ur Leukocyte Esterase Urine RBC Urine WBC Ur Squamous Epith Cells Urine Bacteria Hyaline Casts Granular Casts Salicylates < 5.0 L Urine Opiates Screen Ur Buprenorphine Scrn Ur Oxycodone Screen Urine Methadone Screen Urine Fentanyl Screen Acetaminophen < 3 Ur Barbiturates Screen Ur Phencyclidine Scrn Ur Amphetamines Screen U Benzodiazepines Scrn Urine Cocaine Screen U Marijuana (THC) Screen Ethyl Alcohol 06/17/24 06/17/24 04:50 05:42 MCV 89.7 MCH 30.8 MCHC 34.3 RDW 11.9 Plt Count 272 D MPV 10.2 Immature Gran % (Auto) 0.5 H Neut % (Auto) 61.2 Lymph % (Auto) 25.5 [place] % (Auto) 12.2 H Eos % (Auto) 0.3 Baso % (Auto) 0.3 Lymph # (Auto) 2.7 [place] # (Auto) 1.3 H Eos # (Auto) 0.0 Baso # (Auto) 0.0 Abs Immat Gran (auto) 0.05 H Absolute Neuts (auto) 6.5 Absolute Nucleated RBC 0.000 Nucleated RBC % (auto) 0.0 Smear Tech's Comments PT INR VBG pH VBG pCO2 VBG pO2 VBG HCO3 VBG O2 Saturation VBG Base Excess Anion Gap 13 Estim Creat Clear Calc 132.5 Estimated GFR > 60 POC Glucose Random Glucose 82 Osmolality Lactic Acid Calcium 9.3 Magnesium Total Bilirubin Direct Bilirubin AST ALT Alkaline Phosphatase Total Creatine Kinase Troponin I High Sens 10.6 Total Protein Albumin Urine Color Yellow Urine Appearance Cloudy Urine pH 5.5 Ur Specific [place] 1.025 Urine Protein 300 (3+) H Urine Glucose (UA) Negative Urine Ketones 40 Urine Blood Moderate (2+) H Urine Nitrite Negative Ur Leukocyte Esterase Negative Urine RBC 0-2 Urine WBC 0-5 Ur Squamous Epith Cells >20 Urine Bacteria None Seen Hyaline Casts 11-20 Granular Casts Present Salicylates Urine Opiates Screen Not Detected Ur Buprenorphine Scrn Not Detected Ur Oxycodone Screen Not Detected Urine Methadone Screen Not Detected Urine Fentanyl Screen Not Detected Acetaminophen Ur Barbiturates Screen Not Detected Ur Phencyclidine Scrn Not Detected Ur Amphetamines Screen Not Detected U Benzodiazepines Scrn Not Detected Urine Cocaine Screen POSITIVE H U Marijuana (THC) Screen POSITIVE H Ethyl Alcohol Assessment and Plan (1) Acute metabolic encephalopathy: Status: Acute Plan 23-year-old male with a PMH significant for?polysubstance use disorder and bipolar disorder not on home meds who presents to the ED via ambulance [place] the park by police. Pt will be admitted to the hospital for treatment and further evaluation of acute toxic metabolic encephalopathy in the setting of cocaine intoxication. Acute toxic metabolic encephalopathy In the setting of cocaine intoxication Addiction medicine consult Monitor mentation Leukocytosis. Resolved WBCs elevated at 24.5 at time of presentation Likely reactionary, in the setting of cocaine intoxication No clear indication of active infection or aspiration, no indication of sepsis Patient treated with IVF and started on broad-spectrum antibiotics in the ED Hyperthermia. Resolved Patient with elevated temperature up to 101.8 Likely cocaine induced Patient initially cooled with ice packs Follow temperature Elevated troponins Initial troponin 7.5 with repeat 20.7 Likely secondary to cocaine intoxication Echocardiogram Starvation ketoacidosis, resolved Venous pH 7.09 time of presentation with repeat 7.47 after fluids Likely secondary to cocaine intoxication VEE, resolved Initial creatinine 1.75 at time of presentation Repeat creatinine 0.97 after IVF Bipolar disorder, unspecified No longer on home mood stabilizers psych consult Full Code Attending:?Dr. Saleh DVT Prophylaxis: Lovenox Pt will require a hospitalization of at least two nights for treatment of?acute toxic metabolic encephalopathy in the setting of cocaine intoxication. Given patient's numerous metabolic and vital abnormalities, patient require hospitalization for close monitoring cardiac function, labs, and vital signs. Quality Stroke Does the patient have a stroke diagnosis?: No VTE Prior VTE?: No VTE Risk Level:: Medical - moderate - high VTE Device Contraindication: Treatment Not Indicated VTE Drug Contraindication: N/A - Med Ordered
--- NOTE | 2024-06-17 13:00 | PM.PSYCN ---
History of Present Illness Date of Service: 06/17/24 Chief Complaint: Intoxication HPI Narrative: As per Hospitalist Admission 06/16/24: 23-year-old male with a PMH significant for?polysubstance use disorder and bipolar disorder not on home meds who presents to the ED via ambulance [place] naked in the park by police. Patient currently somnolent but arousable, but unable to provide meaningful HPI which is instead obtained from chart and provider review. Patient was apparently initially awake, alert, and cooperative with paramedics. Reportedly had been doing cocaine and was feeling hot as he was in the sun so decided to disrobe. As soon as patient presented to the hospital he began having seizure-like activity and was noted to be profoundly diaphoretic. ED clinician noted he continued to make eye contact during seizure-like activity without any definite postictal phase. ?In the ED, patient was noted to be tachycardic up to 156, tachypneic up to 28, hyperthermic up to 101.8, and hypertensive up to 161/98. Patient was given multiple doses of IV Ativan, IV fluids, and given ice packs for cooling. Initial labs were significant for leukocytosis of 24.5, venous pH of 7.09, bicarb of 14, anion gap of 35, creatinine 1.75, AST 52, CPK 215, and initial troponin 7.5 with repeat with delta change to 20.7. CXR showed no acute cardiopulmonary findings. CT?of head negative for acute intracranial pathology. EKG demonstrated sinus tachycardia of 152 without evidence of significant ST elevations or depressions. Pt was treated with Ativan 2 mg IV x5 doses, IVF ceftriaxone, and azithromycin. Pt will be admitted to the hospital for treatment and further evaluation of acute toxic metabolic encephalopathy in the setting of cocaine intoxication Today: Met with patient. Chart reviewed. Today patient is alert and oriented. Does not remember circumstances of being brought to the hospital. Appropriately upset for/ concerns regarding circumstances when these were explained. Reported he relapsed with cocaine around a week ago. He had been in IOP program but Left. Is very adamant he does not want inpatient rehab services. Also endorses he has no clear plan for maintaining sobriety in the future. Reports being sober for a number of years and wanting to get back to that. Endorse history of bipolar disorder. Denied any recent depression, SI, HI, psychosis. Sleep has been okay. Reports he had been adherent with medications up until 1 week ago when he relapsed. Reports he was on Risperdal and cannot remember the dose or the frequency. Reports primary care provider prescribes same. Has a therapist which is substance focused. Confirmed risperdal dose is 2mg bid, confirmed with [facility] pharmacy [phone]. Also discussed with mom Section 35 process and family members being able to petition the court. Patient has never had a Section 35 and reports never been petitioned. Past Psychiatric History: No inpatient episodes for bipolar disorder, the patient can recall. Denies any history of suicide attempts. No history of psychosis when off substances. Does not currently have a psychiatry prescriber. Reports having a therapist. Primary care provider prescribes Risperdal 2 mg twice daily Review of Systems Review of Systems nothing acute [facility] Medical History (Updated 06/17/24 @ 15:21 by Herman Corado MD) Bipolar disorder Polysubstance use disorder Social History: lives alone. Reports being in between jobs currently. Mom supportive. Substance History: Cocaine use disorder Diagnostics Vital Signs (24Hr): Vital Signs - 24 hr 06/16/24 18:36 06/16/24 18:51 06/16/24 19:03 Temperature 101.8 F H Pulse Rate 97 156 H 154 H Respiratory Rate 22 H 27 H 27 H Blood Pressure 161/98 H 150/90 H 127/94 H Pulse Oximetry 98 93 Oxygen Delivery Method Room Air Room Air Room Air 06/16/24 19:39 06/16/24 21:17 06/16/24 23:45 Temperature 101.2 F H 101.0 F H 98.8 F Pulse Rate 144 H 129 H 104 H Respiratory Rate 28 H 22 H 22 H Blood Pressure 141/89 H 116/64 Pulse Oximetry 97 97 Oxygen Delivery Method Room Air Room Air 06/17/24 00:01 06/17/24 01:12 06/17/24 03:23 Temperature 98.9 F 98.8 F 97.3 F Pulse Rate 105 H 99 103 H Respiratory Rate 20 18 18 Blood Pressure 116/65 113/61 126/67 Pulse Oximetry 96 99 97 Oxygen Delivery Method Room Air Room Air Room Air 06/17/24 08:00 Temperature 97.6 F Pulse Rate 79 Respiratory Rate 17 Blood Pressure 130/76 Pulse Oximetry 97 Oxygen Delivery Method Room Air BMI result Body Mass Index 22.1 Labs 06/17/24 05:42 06/17/24 05:42 Labs: Laboratory Results - last 48 hr 06/16/24 06/16/24 06/16/24 18:33 18:41 18:45 WBC 24.5 H RBC 5.52 Hgb 17.0 Hct 50.8 MCV 92.0 MCH 30.8 MCHC 33.5 RDW 11.3 Plt Count 426 H MPV 9.8 Immature Gran % (Auto) 2.1 H Neut % (Auto) 76.6 H Lymph % (Auto) 11.9 L [place] % (Auto) 8.9 Eos % (Auto) 0.1 Baso % (Auto) 0.4 Lymph # (Auto) 2.9 [place] # (Auto) 2.2 H Eos # (Auto) 0.0 Baso # (Auto) 0.1 Abs Immat Gran (auto) 0.51 H Absolute Neuts (auto) 18.8 H Absolute Nucleated RBC 0.000 Nucleated RBC % (auto) 0.0 Smear Tech's Comments VERIFIED PT 14.4 H INR 1.2 H VBG pH 7.09 L* VBG pCO2 39 VBG pO2 75 VBG HCO3 12 L VBG O2 Saturation 88.0 VBG Base Excess -16.6 Sodium 146 H Potassium 4.1 Chloride 101 Carbon Dioxide 14 L Anion Gap 35 H BUN 17 H Creatinine 1.75 H Estim Creat Clear Calc 62.7 Estimated GFR 48 POC Glucose 238 H Random Glucose 245 H Osmolality Lactic Acid Calcium 11.3 H Magnesium 2.3 Total Bilirubin 0.5 Direct Bilirubin 0.2 AST 52 H ALT 35 Alkaline Phosphatase 102 Total Creatine Kinase 215 H Troponin I High Sens 7.5 Total Protein 8.9 H Albumin 5.2 H Urine Color Urine Appearance Urine pH Ur Specific [place] Urine Protein Urine Glucose (UA) Urine Ketones Urine Blood Urine Nitrite Ur Leukocyte Esterase Urine RBC Urine WBC Ur Squamous Epith Cells Urine Bacteria Hyaline Casts Granular Casts Salicylates Urine Opiates Screen Ur Buprenorphine Scrn Ur Oxycodone Screen Urine Methadone Screen Urine Fentanyl Screen Acetaminophen Ur Barbiturates Screen Ur Phencyclidine Scrn Ur Amphetamines Screen U Benzodiazepines Scrn Urine Cocaine Screen U Marijuana (THC) Screen Ethyl Alcohol < 10 06/16/24 06/16/24 06/16/24 20:06 21:24 21:26 WBC RBC Hgb Hct MCV MCH MCHC RDW Plt Count MPV Immature Gran % (Auto) Neut % (Auto) Lymph % (Auto) [place] % (Auto) Eos % (Auto) Baso % (Auto) Lymph # (Auto) [place] # (Auto) Eos # (Auto) Baso # (Auto) Abs Immat Gran (auto) Absolute Neuts (auto) Absolute Nucleated RBC Nucleated RBC % (auto) Smear Tech's Comments PT INR VBG pH 7.47 H VBG pCO2 25 VBG pO2 178 VBG HCO3 19 L VBG O2 Saturation 99.0 VBG Base Excess -2.9 Sodium 143 Potassium 3.8 Chloride 112 H Carbon Dioxide 20 L Anion Gap 15 BUN 14 Creatinine 0.97 Estim Creat Clear Calc 113.2 Estimated GFR > 60 POC Glucose Random Glucose 112 Osmolality 302 Lactic Acid 1.3 Calcium 8.9 D Magnesium Total Bilirubin Direct Bilirubin AST ALT Alkaline Phosphatase Total Creatine Kinase 319 H Troponin I High Sens 20.7 D Total Protein Albumin Urine Color Urine Appearance Urine pH Ur Specific [place] Urine Protein Urine Glucose (UA) Urine Ketones Urine Blood Urine Nitrite Ur Leukocyte Esterase Urine RBC Urine WBC Ur Squamous Epith Cells Urine Bacteria Hyaline Casts Granular Casts Salicylates < 5.0 L Urine Opiates Screen Ur Buprenorphine Scrn Ur Oxycodone Screen Urine Methadone Screen Urine Fentanyl Screen Acetaminophen < 3 Ur Barbiturates Screen Ur Phencyclidine Scrn Ur Amphetamines Screen U Benzodiazepines Scrn Urine Cocaine Screen U Marijuana (THC) Screen Ethyl Alcohol 06/17/24 06/17/24 04:50 05:42 WBC 10.6 RBC 4.29 L D Hgb 13.2 L D Hct 38.5 L D MCV 89.7 MCH 30.8 MCHC 34.3 RDW 11.9 Plt Count 272 D MPV 10.2 Immature Gran % (Auto) 0.5 H Neut % (Auto) 61.2 Lymph % (Auto) 25.5 [place] % (Auto) 12.2 H Eos % (Auto) 0.3 Baso % (Auto) 0.3 Lymph # (Auto) 2.7 [place] # (Auto) 1.3 H Eos # (Auto) 0.0 Baso # (Auto) 0.0 Abs Immat Gran (auto) 0.05 H Absolute Neuts (auto) 6.5 Absolute Nucleated RBC 0.000 Nucleated RBC % (auto) 0.0 Smear Tech's Comments PT INR VBG pH VBG pCO2 VBG pO2 VBG HCO3 VBG O2 Saturation VBG Base Excess Sodium 141 Potassium 3.7 Chloride 109 H Carbon Dioxide 23 Anion Gap 13 BUN 10 Creatinine 0.80 Estim Creat Clear Calc 132.5 Estimated GFR > 60 POC Glucose Random Glucose 82 Osmolality Lactic Acid Calcium 9.3 Magnesium Total Bilirubin Direct Bilirubin AST ALT Alkaline Phosphatase Total Creatine Kinase Troponin I High Sens 10.6 Total Protein Albumin Urine Color Yellow Urine Appearance Cloudy Urine pH 5.5 Ur Specific [place] 1.025 Urine Protein 300 (3+) H Urine Glucose (UA) Negative Urine Ketones 40 Urine Blood Moderate (2+) H Urine Nitrite Negative Ur Leukocyte Esterase Negative Urine RBC 0-2 Urine WBC 0-5 Ur Squamous Epith Cells >20 Urine Bacteria None Seen Hyaline Casts 11-20 Granular Casts Present Salicylates Urine Opiates Screen Not Detected Ur Buprenorphine Scrn Not Detected Ur Oxycodone Screen Not Detected Urine Methadone Screen Not Detected Urine Fentanyl Screen Not Detected Acetaminophen Ur Barbiturates Screen Not Detected Ur Phencyclidine Scrn Not Detected Ur Amphetamines Screen Not Detected U Benzodiazepines Scrn Not Detected Urine Cocaine Screen POSITIVE H U Marijuana (THC) Screen POSITIVE H Ethyl Alcohol Imaging Radiology Impressions: ITS Impressions Head CT 06/16/24 19:35 IMPRESSION: No acute intracranial abnormality. Chest X-Ray 06/16/24 19:50 IMPRESSION: No acute cardiopulmonary findings. Mental Status Exam Mental Status Exam Narrative: in bed. Fair self-care. Has some irritability. Alert and oriented. No evidence of SI HI depression. No psychosis. Insight and judgment is limited regarding substance use disorder and likelihood is high relapse Medications Medications Current Medications Acetaminophen (Acetaminophen 325 Mg Tablet) 650 mg PO Q6H PRN PRN Reason: Pain, Mild (Pain Scale 1-3), fever or headache Last Admin: 06/17/24 05:40 Dose: 650 mg Acetaminophen (Acetaminophen Supp 650 Mg Supp.Rect) 650 mg MI Q6H PRN PRN Reason: Pain, Mild (Pain Scale 1-3), fever or headache Calcium Carbonate (Calcium Carbonate 750 Mg Tab.Chew) 750 mg PO Q4H PRN PRN Reason: Heartburn Enoxaparin Sodium (Enoxaparin Sodium 40 Mg/0.4 Ml Syringe) 40 mg SUBCUT Q24H [facility] Last Admin: 06/16/24 23:00 Dose: 40 mg Lactated Ringer's (Lr) 1,000 mls @ 125 mls/hr IVCONT .Q8H [facility] Last Admin: 06/17/24 09:04 Dose: 125 mls/hr Magnesium Hydroxide (Milk Of Magnesia 30 Ml Oral.Susp) 30 ml PO DAILY PRN PRN Reason: Constipation Melatonin (Melatonin 3 Mg Tablet) 6 mg PO BEDTIME PRN PRN Reason: Insomnia Ondansetron HCl (Ondansetron Hcl 4 Mg/2 Ml Vial) 4 mg IVPUSH Q8H PRN PRN Reason: Nausea and Vomiting Sodium Chloride (0.9 % Sodium Chloride Flush 3 Ml Syringe) 3 ml IVFLUSH QSHIFT [facility] Last Admin: 06/17/24 08:01 Dose: Not Given Allergies Allergies Allergy/AdvReac Type Severity Reaction Status Date / Time amoxicillin Allergy Swelling Verified 06/16/24 18:37 Penicillins Allergy Swelling Verified 06/16/24 18:37 Assessment & Plan Assessment & Plan (1) Cocaine use: Status: Acute Code(s): F14.90 - Cocaine use, unspecified, uncomplicated Assessment and Plan: Cocaine use disorder, severe with associated seizures and altered mental state. High risk of relapse. Limited insight regarding same. Declining inpatient/ rehab. Family aware of process for Section 35, should They pursue this. (2) Bipolar 2 disorder: Status: Acute Code(s): F31.81 - Bipolar II disorder Assessment and Plan: currently stable on Risperdal 2 mg twice daily. Would continue same. Follows up with primary care provider and has a therapist. No grounds for involuntary psychiatric admission/section 12 retention or admission. Plan Signed off case Total time managing care of this patient today ____ minutes.
--- NOTE | 2024-06-17 14:13 | PM.DS ---
DS: Providers Provider Date of Service: 06/17/24 Date of admission: 06/16/24 21:50 Primary care physician: Unknown Physician Consults: 06/16/24 21:52 Addiction Medicine Routine Consulting Provider: Addiction Covering Reason for consultation: cocaine use disorder 06/17/24 10:32 Consult to Psychiatry Routine Consulting Provider: Psych Covering Reason for consultation: bipolar, has been off medications DS: Diagnosis Discharge Diagnosis (1) Acute metabolic encephalopathy: Status: Acute DS: Summary Hospital Course Hospital Course: History and physical as per admitting provider. Pt is a 23-year-old male with a PMH significant for?polysubstance use disorder and bipolar disorder not on home meds who presents to the ED via ambulance [place] naked [place] the park by police. Patient currently somnolent but arousable, but unable to provide meaningful HPI which is instead obtained from chart and provider review. Patient was apparently initially awake, alert, and cooperative with paramedics. Reportedly had been doing cocaine and was feeling hot as he was in the sun so decided to disrobe. As soon as patient presented to the hospital he began having seizure-like activity and was noted to be profoundly diaphoretic. ED clinician noted he continued to make eye contact during seizure-like activity without any definite postictal phase. ?In the ED, patient was noted to be tachycardic up to 156, tachypneic up to 28, hyperthermic up to 101.8, and hypertensive up to 161/98. Patient was given multiple doses of IV Ativan, IV fluids, and given ice packs for cooling. Initial labs were significant for leukocytosis of 24.5, venous pH of 7.09, bicarb of 14, anion gap of 35, creatinine 1.75, AST 52, CPK 215, and initial troponin 7.5 with repeat with delta change to 20.7. CXR showed no acute cardiopulmonary findings. CT?of head negative for acute intracranial pathology. EKG demonstrated sinus tachycardia of 152 without evidence of significant ST elevations or depressions. Pt was treated with Ativan 2 mg IV x5 doses, IVF ceftriaxone, and azithromycin. Pt will be admitted to the hospital for treatment and further evaluation of acute toxic metabolic encephalopathy in the setting of cocaine intoxication. 23-year-old man treated for acute toxic metabolic encephalopathy likely to cocaine intoxication with a history of seizures secondary to cocaine use. Patient was treated with IV fluids and lorazepam. He was noted to have leukocytosis with white blood cell count of 24.5 likely reactionary to cocaine intoxication. Patient had no clear indication of active infection and no sepsis. He was noted to have fever likely secondary to cocaine intoxication, patient initially cooled with ice packs and patient did not have any fevers overnight. He was also noted to have elevated troponin but remained flat which also was likely related to intoxication from cocaine. Also treated for VEE likely secondary to dehydration. Resolved with IV fluids. All his labs have been within acceptable limits.HIs mother is assisting him to find a detox bed. Time Attestation Discharge Coordination Time (in mins): 32 Quality: Safe Use of Opioids Does Pt have an Active Cancer Diagnosis on the Problem List?: No Quality: Stroke Does the patient have a stroke diagnosis?: No Physical Exam Vital Signs: Vital Signs: Last Vital Signs Temp 97.6 F 06/17/24 08:00 Pulse 79 06/17/24 08:00 Resp 17 06/17/24 08:00 BP 130/76 06/17/24 08:00 Pulse Ox 97 06/17/24 08:00 O2 Del Method Room Air 06/17/24 08:00 BMI result Body Mass Index 22.1 Appearing in no acute distress head is normocephalic atraumatic eyes pupils are PERRLA sclera is anicteric mouth throat mucous membranes are intact and moist neck is supple no lymphadenopathy, no JVD noted lung sounds are clear to auscultation heart regular rate rhythm, clear S1, S2 positive bowel sounds, abdomen is soft, nontender neuro patient is alert x3, no focal deficits DS: Data Data Completed and Pending Labs on day of discharge: Laboratory Results - last 24 hr 06/16/24 06/16/24 06/16/24 18:33 18:41 18:45 WBC 24.5 H RBC 5.52 Hgb 17.0 Hct 50.8 MCV 92.0 MCH 30.8 MCHC 33.5 RDW 11.3 Plt Count 426 H MPV 9.8 Immature Gran % (Auto) 2.1 H Neut % (Auto) 76.6 H Lymph % (Auto) 11.9 L [place] % (Auto) 8.9 Eos % (Auto) 0.1 Baso % (Auto) 0.4 Lymph # (Auto) 2.9 [place] # (Auto) 2.2 H Eos # (Auto) 0.0 Baso # (Auto) 0.1 Abs Immat Gran (auto) 0.51 H Absolute Neuts (auto) 18.8 H Absolute Nucleated RBC 0.000 Nucleated RBC % (auto) 0.0 Smear Tech's Comments VERIFIED PT 14.4 H INR 1.2 H VBG pH 7.09 L* VBG pCO2 39 VBG pO2 75 VBG HCO3 12 L VBG O2 Saturation 88.0 VBG Base Excess -16.6 Sodium 146 H Potassium 4.1 Chloride 101 Carbon Dioxide 14 L Anion Gap 35 H BUN 17 H Creatinine 1.75 H Estim Creat Clear Calc 62.7 Estimated GFR 48 POC Glucose 238 H Random Glucose 245 H Osmolality Lactic Acid Calcium 11.3 H Magnesium 2.3 Total Bilirubin 0.5 Direct Bilirubin 0.2 AST 52 H ALT 35 Alkaline Phosphatase 102 Total Creatine Kinase 215 H Troponin I High Sens 7.5 Total Protein 8.9 H Albumin 5.2 H Urine Color Urine Appearance Urine pH Ur Specific [place] Urine Protein Urine Glucose (UA) Urine Ketones Urine Blood Urine Nitrite Ur Leukocyte Esterase Urine RBC Urine WBC Ur Squamous Epith Cells Urine Bacteria Hyaline Casts Granular Casts Salicylates Urine Opiates Screen Ur Buprenorphine Scrn Ur Oxycodone Screen Urine Methadone Screen Urine Fentanyl Screen Acetaminophen Ur Barbiturates Screen Ur Phencyclidine Scrn Ur Amphetamines Screen U Benzodiazepines Scrn Urine Cocaine Screen U Marijuana (THC) Screen Ethyl Alcohol < 10 06/16/24 06/16/24 06/16/24 20:06 21:24 21:26 WBC RBC Hgb Hct MCV MCH MCHC RDW Plt Count MPV Immature Gran % (Auto) Neut % (Auto) Lymph % (Auto) [place] % (Auto) Eos % (Auto) Baso % (Auto) Lymph # (Auto) [place] # (Auto) Eos # (Auto) Baso # (Auto) Abs Immat Gran (auto) Absolute Neuts (auto) Absolute Nucleated RBC Nucleated RBC % (auto) Smear Tech's Comments PT INR VBG pH 7.47 H VBG pCO2 25 VBG pO2 178 VBG HCO3 19 L VBG O2 Saturation 99.0 VBG Base Excess -2.9 Sodium 143 Potassium 3.8 Chloride 112 H Carbon Dioxide 20 L Anion Gap 15 BUN 14 Creatinine 0.97 Estim Creat Clear Calc 113.2 Estimated GFR > 60 POC Glucose Random Glucose 112 Osmolality 302 Lactic Acid 1.3 Calcium 8.9 D Magnesium Total Bilirubin Direct Bilirubin AST ALT Alkaline Phosphatase Total Creatine Kinase 319 H Troponin I High Sens 20.7 D Total Protein Albumin Urine Color Urine Appearance Urine pH Ur Specific [place] Urine Protein Urine Glucose (UA) Urine Ketones Urine Blood Urine Nitrite Ur Leukocyte Esterase Urine RBC Urine WBC Ur Squamous Epith Cells Urine Bacteria Hyaline Casts Granular Casts Salicylates < 5.0 L Urine Opiates Screen Ur Buprenorphine Scrn Ur Oxycodone Screen Urine Methadone Screen Urine Fentanyl Screen Acetaminophen < 3 Ur Barbiturates Screen Ur Phencyclidine Scrn Ur Amphetamines Screen U Benzodiazepines Scrn Urine Cocaine Screen U Marijuana (THC) Screen Ethyl Alcohol 06/17/24 06/17/24 04:50 05:42 WBC 10.6 RBC 4.29 L D Hgb 13.2 L D Hct 38.5 L D MCV 89.7 MCH 30.8 MCHC 34.3 RDW 11.9 Plt Count 272 D MPV 10.2 Immature Gran % (Auto) 0.5 H Neut % (Auto) 61.2 Lymph % (Auto) 25.5 [place] % (Auto) 12.2 H Eos % (Auto) 0.3 Baso % (Auto) 0.3 Lymph # (Auto) 2.7 [place] # (Auto) 1.3 H Eos # (Auto) 0.0 Baso # (Auto) 0.0 Abs Immat Gran (auto) 0.05 H Absolute Neuts (auto) 6.5 Absolute Nucleated RBC 0.000 Nucleated RBC % (auto) 0.0 Smear Tech's Comments PT INR VBG pH VBG pCO2 VBG pO2 VBG HCO3 VBG O2 Saturation VBG Base Excess Sodium 141 Potassium 3.7 Chloride 109 H Carbon Dioxide 23 Anion Gap 13 BUN 10 Creatinine 0.80 Estim Creat Clear Calc 132.5 Estimated GFR > 60 POC Glucose Random Glucose 82 Osmolality Lactic Acid Calcium 9.3 Magnesium Total Bilirubin Direct Bilirubin AST ALT Alkaline Phosphatase Total Creatine Kinase Troponin I High Sens 10.6 Total Protein Albumin Urine Color Yellow Urine Appearance Cloudy Urine pH 5.5 Ur Specific [place] 1.025 Urine Protein 300 (3+) H Urine Glucose (UA) Negative Urine Ketones 40 Urine Blood Moderate (2+) H Urine Nitrite Negative Ur Leukocyte Esterase Negative Urine RBC 0-2 Urine WBC 0-5 Ur Squamous Epith Cells >20 Urine Bacteria None Seen Hyaline Casts 11-20 Granular Casts Present Salicylates Urine Opiates Screen Not Detected Ur Buprenorphine Scrn Not Detected Ur Oxycodone Screen Not Detected Urine Methadone Screen Not Detected Urine Fentanyl Screen Not Detected Acetaminophen Ur Barbiturates Screen Not Detected Ur Phencyclidine Scrn Not Detected Ur Amphetamines Screen Not Detected U Benzodiazepines Scrn Not Detected Urine Cocaine Screen POSITIVE H U Marijuana (THC) Screen POSITIVE H Ethyl Alcohol Discharge Plan Discharge Anticipated Discharge Date/Time: 06/17/24 14:06 Patient Disposition: Home, Self-Care Discharge Diagnosis: Acute toxic metabolic encephalopathy Leukocytosis Hyperthermia Starvation ketoacidosis VEE Discharge Medications: Continued hydroxyzine HCl 50 mg tablet 50 mg PO TID PRN (Reason: Anxiety) Qty: 270 0RF risperidone 2 mg tablet 2 mg PO BID Qty: 180 0RF propranolol 20 mg tablet 20 mg PO TID Qty: 270 0RF aripiprazole 15 mg tablet 15 mg PO DAILY Qty: 90 0RF Discharge Orders: Discharge Order (Routine); Ordered 06/17/24 Ordered By: Giovanna Ng Diet: Advance to usual diet Activity on Discharge: As tolerated Stand Alone Forms: Patient Portal Discharge page Print Language: [place] Care Plan Goals: Stop using cocaine, seek outpatient resources for assistance with this Health Concerns: Acute toxic metabolic encephalopathy Leukocytosis Hyperthermia Starvation ketoacidosis VEE Plan of Treatment: Follow-up with primary care provider as needed Take all medications as prescribed Assessment: See discharge summary
--- NOTE | 2024-06-17 14:24 | MHC.CM.PN ---
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
[2024-06-17 15:30] VITALS: BP 146/88; PULSE 97; RESP 18; TEMP 36.6; O2SAT 97
--- NOTE | 2024-06-17 15:44 | HO.ADDICT_ITS ---
History of Present Illness Date of Service: 06/17/2024 Chief Complaint: Intoxication Reason for Consult: cocaine use Sources of Information: patient interviewed and chart reviewed HPI Narrative: Patient is a 23 year old male medically admitted with metabolic encephalopathy after being found in the street with no clothes on. Seen in room 371. Awake, alert, engaged in interview. Patient unable to recall any events leading to hospitalization He reports using cocaine IN. Reports using for a few years and states he has been to various levels of care in the past. He declines any referrals or discussion about medications for StUD. He states he does not wish to be in the hospital and asks to go home Past Psychiatric History: No inpatient episodes for bipolar disorder, the patient can recall. Denies any history of suicide attempts. No history of psychosis when off substances. Does not currently have a psychiatry prescriber. Reports having a therapist. Primary care provider prescribes Risperdal 2 mg twice daily Review of Systems Constitutional: Reports no additional constitutional complaints Diagnostics Vital Signs (24Hr): Vital Signs - 24 hr 06/16/24 18:36 06/16/24 18:51 06/16/24 19:03 Temperature 101.8 F H Pulse Rate 97 156 H 154 H Respiratory Rate 22 H 27 H 27 H Blood Pressure 161/98 H 150/90 H 127/94 H Pulse Oximetry 98 93 Oxygen Delivery Method Room Air Room Air Room Air 06/16/24 19:39 06/16/24 21:17 06/16/24 23:45 Temperature 101.2 F H 101.0 F H 98.8 F Pulse Rate 144 H 129 H 104 H Respiratory Rate 28 H 22 H 22 H Blood Pressure 141/89 H 116/64 Pulse Oximetry 97 97 Oxygen Delivery Method Room Air Room Air 06/17/24 00:01 06/17/24 01:12 06/17/24 03:23 Temperature 98.9 F 98.8 F 97.3 F Pulse Rate 105 H 99 103 H Respiratory Rate 20 18 18 Blood Pressure 116/65 113/61 126/67 Pulse Oximetry 96 99 97 Oxygen Delivery Method Room Air Room Air Room Air 06/17/24 08:00 06/17/24 15:30 Temperature 97.6 F 97.9 F Pulse Rate 79 97 Respiratory Rate 17 18 Blood Pressure 130/76 146/88 H Pulse Oximetry 97 97 Oxygen Delivery Method Room Air Room Air BMI result Body Mass Index 22.1 Labs 06/17/24 05:42 06/17/24 05:42 Labs: Laboratory Results - last 48 hr 06/16/24 06/16/24 06/16/24 18:33 18:41 18:45 WBC 24.5 H RBC 5.52 Hgb 17.0 Hct 50.8 MCV 92.0 MCH 30.8 MCHC 33.5 RDW 11.3 Plt Count 426 H MPV 9.8 Immature Gran % (Auto) 2.1 H Neut % (Auto) 76.6 H Lymph % (Auto) 11.9 L Shannon % (Auto) 8.9 Eos % (Auto) 0.1 Baso % (Auto) 0.4 Lymph # (Auto) 2.9 Shannon # (Auto) 2.2 H Eos # (Auto) 0.0 Baso # (Auto) 0.1 Abs Immat Gran (auto) 0.51 H Absolute Neuts (auto) 18.8 H Absolute Nucleated RBC 0.000 Nucleated RBC % (auto) 0.0 Smear Tech's Comments VERIFIED PT 14.4 H INR 1.2 H VBG pH 7.09 L* VBG pCO2 39 VBG pO2 75 VBG HCO3 12 L VBG O2 Saturation 88.0 VBG Base Excess -16.6 Sodium 146 H Potassium 4.1 Chloride 101 Carbon Dioxide 14 L Anion Gap 35 H BUN 17 H Creatinine 1.75 H Estim Creat Clear Calc 62.7 Estimated GFR 48 POC Glucose 238 H Random Glucose 245 H Osmolality Lactic Acid Calcium 11.3 H Magnesium 2.3 Total Bilirubin 0.5 Direct Bilirubin 0.2 AST 52 H ALT 35 Alkaline Phosphatase 102 Total Creatine Kinase 215 H Troponin I High Sens 7.5 Total Protein 8.9 H Albumin 5.2 H Urine Color Urine Appearance Urine pH Ur Specific [place] Urine Protein Urine Glucose (UA) Urine Ketones Urine Blood Urine Nitrite Ur Leukocyte Esterase Urine RBC Urine WBC Ur Squamous Epith Cells Urine Bacteria Hyaline Casts Granular Casts Salicylates Urine Opiates Screen Ur Buprenorphine Scrn Ur Oxycodone Screen Urine Methadone Screen Urine Fentanyl Screen Acetaminophen Ur Barbiturates Screen Ur Phencyclidine Scrn Ur Amphetamines Screen U Benzodiazepines Scrn Urine Cocaine Screen U Marijuana (THC) Screen Ethyl Alcohol < 10 06/16/24 06/16/24 06/16/24 20:06 21:24 21:26 WBC RBC Hgb Hct MCV MCH MCHC RDW Plt Count MPV Immature Gran % (Auto) Neut % (Auto) Lymph % (Auto) Shannon % (Auto) Eos % (Auto) Baso % (Auto) Lymph # (Auto) Shannon # (Auto) Eos # (Auto) Baso # (Auto) Abs Immat Gran (auto) Absolute Neuts (auto) Absolute Nucleated RBC Nucleated RBC % (auto) Smear Tech's Comments PT INR VBG pH 7.47 H VBG pCO2 25 VBG pO2 178 VBG HCO3 19 L VBG O2 Saturation 99.0 VBG Base Excess -2.9 Sodium 143 Potassium 3.8 Chloride 112 H Carbon Dioxide 20 L Anion Gap 15 BUN 14 Creatinine 0.97 Estim Creat Clear Calc 113.2 Estimated GFR > 60 POC Glucose Random Glucose 112 Osmolality 302 Lactic Acid 1.3 Calcium 8.9 D Magnesium Total Bilirubin Direct Bilirubin AST ALT Alkaline Phosphatase Total Creatine Kinase 319 H Troponin I High Sens 20.7 D Total Protein Albumin Urine Color Urine Appearance Urine pH Ur Specific [place] Urine Protein Urine Glucose (UA) Urine Ketones Urine Blood Urine Nitrite Ur Leukocyte Esterase Urine RBC Urine WBC Ur Squamous Epith Cells Urine Bacteria Hyaline Casts Granular Casts Salicylates < 5.0 L Urine Opiates Screen Ur Buprenorphine Scrn Ur Oxycodone Screen Urine Methadone Screen Urine Fentanyl Screen Acetaminophen < 3 Ur Barbiturates Screen Ur Phencyclidine Scrn Ur Amphetamines Screen U Benzodiazepines Scrn Urine Cocaine Screen U Marijuana (THC) Screen Ethyl Alcohol 06/17/24 06/17/24 04:50 05:42 WBC 10.6 RBC 4.29 L D Hgb 13.2 L D Hct 38.5 L D MCV 89.7 MCH 30.8 MCHC 34.3 RDW 11.9 Plt Count 272 D MPV 10.2 Immature Gran % (Auto) 0.5 H Neut % (Auto) 61.2 Lymph % (Auto) 25.5 Shannon % (Auto) 12.2 H Eos % (Auto) 0.3 Baso % (Auto) 0.3 Lymph # (Auto) 2.7 Shannon # (Auto) 1.3 H Eos # (Auto) 0.0 Baso # (Auto) 0.0 Abs Immat Gran (auto) 0.05 H Absolute Neuts (auto) 6.5 Absolute Nucleated RBC 0.000 Nucleated RBC % (auto) 0.0 Smear Tech's Comments PT INR VBG pH VBG pCO2 VBG pO2 VBG HCO3 VBG O2 Saturation VBG Base Excess Sodium 141 Potassium 3.7 Chloride 109 H Carbon Dioxide 23 Anion Gap 13 BUN 10 Creatinine 0.80 Estim Creat Clear Calc 132.5 Estimated GFR > 60 POC Glucose Random Glucose 82 Osmolality Lactic Acid Calcium 9.3 Magnesium Total Bilirubin Direct Bilirubin AST ALT Alkaline Phosphatase Total Creatine Kinase Troponin I High Sens 10.6 Total Protein Albumin Urine Color Yellow Urine Appearance Cloudy Urine pH 5.5 Ur Specific [place] 1.025 Urine Protein 300 (3+) H Urine Glucose (UA) Negative Urine Ketones 40 Urine Blood Moderate (2+) H Urine Nitrite Negative Ur Leukocyte Esterase Negative Urine RBC 0-2 Urine WBC 0-5 Ur Squamous Epith Cells >20 Urine Bacteria None Seen Hyaline Casts 11-20 Granular Casts Present Salicylates Urine Opiates Screen Not Detected Ur Buprenorphine Scrn Not Detected Ur Oxycodone Screen Not Detected Urine Methadone Screen Not Detected Urine Fentanyl Screen Not Detected Acetaminophen Ur Barbiturates Screen Not Detected Ur Phencyclidine Scrn Not Detected Ur Amphetamines Screen Not Detected U Benzodiazepines Scrn Not Detected Urine Cocaine Screen POSITIVE H U Marijuana (THC) Screen POSITIVE H Ethyl Alcohol Imaging Radiology Impressions: ITS Impressions Head CT 06/16/24 19:35 IMPRESSION: No acute intracranial abnormality. Chest X-Ray 06/16/24 19:50 IMPRESSION: No acute cardiopulmonary findings. Mental Status Exam Mental Status Exam Level of Consciousness: Awake and Alert Patient Behavior: Guarded and Poor Eye Contact Mood Description: Constricted Affect Description: Constricted Medications Medications Current Medications Acetaminophen (Acetaminophen 325 Mg Tablet) 650 mg PO Q6H PRN PRN Reason: Pain, Mild (Pain Scale 1-3), fever or headache Last Admin: 06/17/24 05:40 Dose: 650 mg Acetaminophen (Acetaminophen Supp 650 Mg Supp.Rect) 650 mg MO Q6H PRN PRN Reason: Pain, Mild (Pain Scale 1-3), fever or headache Calcium Carbonate (Calcium Carbonate 750 Mg Tab.Chew) 750 mg PO Q4H PRN PRN Reason: Heartburn Enoxaparin Sodium (Enoxaparin Sodium 40 Mg/0.4 Ml Syringe) 40 mg SUBCUT Q24H [facility] Last Admin: 06/16/24 23:00 Dose: 40 mg Lactated Ringer's (Lr) 1,000 mls @ 125 mls/hr IVCONT .Q8H [facility] Last Infusion: 06/17/24 15:23 Dose: 0 mls/hr Magnesium Hydroxide (Milk Of Magnesia 30 Ml Oral.Susp) 30 ml PO DAILY PRN PRN Reason: Constipation Melatonin (Melatonin 3 Mg Tablet) 6 mg PO BEDTIME PRN PRN Reason: Insomnia Ondansetron HCl (Ondansetron Hcl 4 Mg/2 Ml Vial) 4 mg IVPUSH Q8H PRN PRN Reason: Nausea and Vomiting Risperidone (Risperidone 2 Mg Tablet) 2 mg PO BID [facility] Sodium Chloride (0.9 % Sodium Chloride Flush 3 Ml Syringe) 3 ml IVFLUSH QSHIFT [facility] Last Admin: 06/17/24 15:13 Dose: Not Given Allergies Allergies Allergy/AdvReac Type Severity Reaction Status Date / Time amoxicillin Allergy Swelling Verified 06/16/24 18:37 Penicillins Allergy Swelling Verified 06/16/24 18:37 Assessment & Plan Assessment & Plan (1) Cocaine use disorder: Status: Acute Code(s): F14.10 - Cocaine abuse, uncomplicated Assessment and Plan: * risk reduction discussion--using less, being with people he trusts if he decides to use, narcan avilability, etc * declines medication trial to address stumulant use * declines referral to higher level of care (ATS) Total time managing care of this patient today ____ minutes. PMFSH Past Medical History Medical History (Updated 06/17/24 @ 15:45 by Tami Diaz CNP) Bipolar disorder Polysubstance use disorder Social History Social History Household Members: Unknown / Unable to assess Housing: Unknown / Unable to assess Do you presently have visiting nurse or other home services: No Alcohol intake: current Alcohol intake frequency: a few times a week Patient Tobacco Use Status: Refuse Tobacco use screen Substance Use Type: Crack/Cocaine service: No
[2024-06-17] MEDS: risperiDONE 2 MG TABLET PO (15:49)
== END 2024-06-17 16:43 | disposition home or self-care (01) | DRG 917 ==
LOC: HO.ED 22:22 → HO.EDOVER 22:27 → HO.S3 23:21
PROVIDERS: Student in an Organized Health Care Education/Training Program; Admitting Provider Student in an Organized Health Care Education/Training Program; Emergency Provider Emergency Medicine; Visit Provider Nurse Practitioner Acute Care
DX: T40.5X1A Poisoning by cocaine, accidental (unintentional), initial encounter (principal); G92.8 Other toxic encephalopathy; N17.9 Acute kidney failure, unspecified; E87.29 Other acidosis; F14.129 Cocaine abuse with intoxication, unspecified; Z71.51 Drug abuse counseling and surveillance of drug abuser; R50.2 Drug induced fever; F31.9 Bipolar disorder, unspecified; F19.90 Other psychoactive substance use, unspecified, uncomplicated; Z79.899 Other long term (current) drug therapy
CPT/HCPCS: 36415; 70450; 71045; 80048; 80076; 80143; 80179; 80307; 81001; 82550; 82803; 82947; 83605; 83735; 83930; 84484; 85025; 85610; 87040; 93005; 99285; J0131; J0456; J0696; J1650; J2060; J7120; Q9957

== ENCOUNTER → 2024-06-16 18:33 | Outpatient (BNV) | payer SELFPAY | PROVIDERS: Admitting Provider Student in an Organized Health Care Education/Training Program; Emergency Provider Emergency Medicine; Visit Provider Internal Medicine Cardiovascular Disease | DX: I45.6 Pre-excitation syndrome (principal) | CPT/HCPCS: 93010 ==

== ENCOUNTER → 2024-06-16 21:50 | Outpatient (BNV) | payer SELFPAY | PROVIDERS: Admitting Provider Student in an Organized Health Care Education/Training Program; Emergency Provider Emergency Medicine; Visit Provider Nurse Practitioner Psychiatric/Mental Health | DX: F14.10 Cocaine abuse, uncomplicated (principal) | CPT/HCPCS: 99231 ==

== ENCOUNTER → 2024-06-16 21:50 | Outpatient (BNV) | payer SELFPAY | PROVIDERS: Admitting Provider Student in an Organized Health Care Education/Training Program; Emergency Provider Emergency Medicine; Visit Provider Student in an Organized Health Care Education/Training Program | DX: R50.9 Fever, unspecified (principal); E87.20 Acidosis, unspecified; G93.41 Metabolic encephalopathy; F14.929 Cocaine use, unspecified with intoxication, unspecified | CPT/HCPCS: 99223; 99239; 99499 ==

== ENCOUNTER → 2024-06-16 21:50 | Outpatient (BNV) | payer SELFPAY | PROVIDERS: Admitting Provider Student in an Organized Health Care Education/Training Program; Emergency Provider Emergency Medicine; Visit Provider Psychiatry & Neurology Psychiatry | DX: F31.81 Bipolar II disorder (principal); F14.90 Cocaine use, unspecified, uncomplicated | CPT/HCPCS: 99232 ==

== ENCOUNTER 2024-07-21 15:17 | Emergency (ER) | payer BC, SELFPAY ==
--- NOTE | ~2024-07-21 | XR_ITS ---
EXAMINATION: XR LUMBOSACRAL SPINE CLINICAL INFORMATION: Back pain with a history of burst fracture of L2 COMPARISON: None available. TECHNIQUE: Three views of the lumbosacral spine. FINDINGS: There is significant compression fracture of L2 and consistent with known history. There is angulation of orifice fragments toward this spinal canal and spinal canal encroachment with excluded. Suggest vertebral bodies are well aligned. L1 medial subchondral sclerosis most likely related to subchondral fracture line XR/XR lumbar spine 2-3V IMPRESSION: Significant burst fracture of L2 with possible canal stenosis Electronically signed by: Dona Santoro MD 07/23/2024 09:46 AM EDT
[2024-07-21 15:37] VITALS: BP 132/71; PULSE 134; RESP 18; TEMP 37; O2SAT 95
[2024-07-21 15:43] VITALS: BP 149/96; PULSE 136; O2SAT 97; BMI 22.8
--- NOTE | 2024-07-21 15:48 | MHC.CARE ---
Care Team received call from Sadie at [facility] who report they saw this pt earlier today due to hallucinations secondary to cocaine use, and there is a pending Section 35. Pt was ambulated to ED due to seizure. [facility] reported they were dispatched to the home earlier today for a wellness check, by client's mom due to concerns of client's cocaine use. [facility] reports pt was hallucinating earlier, acting very paranoid and tangential- saying his cat is not his real cat... his tattoos are not real and endorsing [employer]. [facility] reports mom went to court for a Section 35 and court approved warrant, however, client is not able to appear in court due to being at the ED following having a seizure. [facility] is asking if [facility] will keep client over the weekend until Wednesday when he can be seen in court. CARE Team stated they will write a note and advise the Physician of these concerns. Pt has been seen by [facility] on 2 separate occasions- they did not fully assess him earlier. Client has been in IOP previously. He also broke his back about a month ago after falling out a window, per [facility] report.
--- NOTE | 2024-07-21 15:49 | ECG_ITS ---
Test Reason : SEIZURE Blood Pressure : / mmHG Vent. Rate : 125 BPM Atrial Rate : 125 BPM P-R Int : 134 ms QRS Dur : 098 ms QT Int : 316 ms P-R-T Axes : 077 075 042 degrees QTc Int : 456 ms Sinus tachycardia Abnormal ECG When compared with ECG of 16-JUN-2024 18:41, ME interval has increased Questionable change in QRS duration Minimal criteria for Anterior infarct are no longer Present Heart rate has decreased Referred By: Juju Gresham Electronically Signed By:VINICIUS WILSON
--- NOTE | 2024-07-21 15:51 | ED_ITS ---
HPI - Seizure General Chief Complaint: Seizure Stated Complaint: Sz post cocaine use Time Seen by Provider: 07/21/24 15:38 Source: patient and EMS Mode of arrival: EMS Limitations: no limitations History of Present Illness ED Provider: Dr. Juju Gresham HPI Narrative: patient comes to the emergency room via EMS. According to the patient, patient states that he was parked in a car, admits to using cocaine. Then he remembers being in the hospital. According to EMS, the patient's friend was in the car with him, witnessed the seizure, patient was brought to the emergency room. Patient states that he has been admitted before for seizures which are triggered by using cocaine. patient reports that he was in the car, denies any head injuries or any falls. Complaining of chronic back pain secondary to a fracture in his back over a month ago Related Data Previous Rx's ?Medication ?Instructions ?Recorded aripiprazole 15 mg tablet 15 mg PO DAILY #90 tabs 06/17/24 hydroxyzine HCl 50 mg tablet 50 mg PO TID PRN Anxiety #270 tabs 06/17/24 propranolol 20 mg tablet 20 mg PO TID #270 tabs 06/17/24 risperidone 2 mg tablet 2 mg PO BID #180 tabs 06/17/24 Allergies Allergy/AdvReac Type Severity Reaction Status Date / Time amoxicillin Allergy Swelling Verified 07/21/24 15:46 Penicillins Allergy Swelling Verified 07/21/24 15:46 Review of Systems 2 Review of Systems: Constitutional : No Weight loss, No Fever, No Chills, No Night Sweats, No Fatigue, No Malaise ENT/Mouth : No Hearing loss, No Ear Pain, No Nasal Congestion, No Sinus Pain, No Hoarseness, No sore throat, No Rhinorrhea, No Swallowing Difficulty Eyes: No Eye Pain, No Swelling, No Redness, No Foreign Body, No Discharge, No Vision Changes Cardiovascular : No Chest Pain, No SOB, No Dyspnea on Exertion, No Orthopnea, No Edema, No Palpitations Respiratory : No Cough, No Sputum, No Wheezing, No Smoke Exposure, No Dyspnea Gastrointestinal : No Nausea, No Vomiting, No Diarrhea, No Constipation, No abdominal Pain, No Hematochezia, No Melena Genitourinary : no irregular bleeding, No Dysuria, No Urinary Frequency, No Hematuria, No Urinary Incontinence, No Urgency, No Flank Pain, No Urinary Flow Changes, No Hesitancy Musculoskeletal : No joint pain, No Myalgias, No Joint Swelling Skin : No Skin Lesions, No rash Neuro : No Weakness, No Numbness, No Paresthesias, No Loss of Consciousness, No Dizziness, No Headache Psych : No Anxiety/Panic, No Depression, No SI/HI/AH/VH, No Social Issues, Heme/Lymph: No Bruising, No Bleeding,No Lymphadenopathy Endocrine : No Polyuria, No Polydipsia, No Temperature Intolerance [facility] Past Medical History Medical History Cocaine use Bipolar disorder Polysubstance use disorder Social History Social History Household Members: Unknown / Unable to assess Housing: Unknown / Unable to assess Do you presently have visiting nurse or other home services: No Alcohol intake: former Patient Tobacco Use Status: Refuse Tobacco use screen Smoked in Last 30 Days: Yes Use of substances other than those prescribed or required for medical reasons: Yes Substance Use Type: Crack/Cocaine Advance Directives: No Advance Directives Information Provided: No service: No Physical Exam 2 Vital Signs: Vital Signs: Last Vital Signs Temp 98.7 F 07/21/24 19:08 Pulse 102 H 07/21/24 19:08 Resp 18 07/21/24 19:08 BP 124/79 07/21/24 19:08 Pulse Ox 98 07/21/24 19:08 O2 Del Method Room Air 07/21/24 19:08 BMI result Body Mass Index 22.8 Const: Other: Appearance: Alert. Oriented X3. No acute distress. patient's seems a bit confused, possibly postictal versus psychotic? Eyes: Pupils equal, round and reactive to light. ENT: Pharynx normal. Neck: Normal inspection. Neck supple. No lymph nodes noted. No crepitus CVS: Normal heart rate and rhythm. Pulses normal. Normal S1 and S2 Respiratory: No respiratory distress. Breath sounds normal. No Wheezing. No rales Abdomen: Soft and nontender. No rigidity. No distention. Skin: Skin warm and dry. Normal skin color. Normal skin turgor. back: Patient has a back brace for previous fracture a month ago Extremities: No lower extremity edema. No Lacerations. No Rash Neuro: Oriented X 3. No motor deficit. No sensory deficit. Moving all extremities. No slurred speech. CN 2 through 12 grossly intact Psych: calm, , confused, states that he can not tell the difference between real world Course Course Course Narrative: - I was informed by the patient's mother that she started a section 35, got approved. Patient to be picked up by PD on Wednesday. - Patient's seems a bit confused/psychotic, possibly under the influence of drugs. I discussed the patient with the care team. Patient will stay for re- evaluation tomorrow in the morning, give him some time to metabolize the drugs. At this time it would be an unsafe discharge. Patient is on a Section 12. - Patient to be Re-evaluated in the morning - discussed with our charge nurse, patient would be better off in the Behavioral Health pod - patient's mother agrees with plan Medications Administered Discontinued Medications Generic Name Dose Route Start Last Admin Trade Name Freq PRN Reason Stop Dose Admin Nicotine Polacrilex 2 mg 07/21/24 18:15 07/21/24 18:18 Nicotine Polacrilex 2 Mg Gum BUCCAL 07/21/24 18:16 2 mg ONCE ONE Administration Medical Decision Making Medical Decision Making [facility] Narrative: - My interpretation of labs: Hematology at baseline, normal white blood cell count, chemistry normal, lactic acid normal. Urinalysis positive for cocaine and marijuana - patient is on a Section 12 started by behavioral health/ care team - patient's mother at bedside, states that the patient does have history of psychiatric conditions - care team to re-evaluate the patient in the morning Differential Diagnosis Differential Diagnoses: The differential diagnosis associated with the presentation includes ( encephalopathy secondary to cocaine abuse, psychosis, polysubstance abuse) Admission/Observation Consideration of admission/observation: Escalation of care including admission/observation considered Lab Data [facility] Lab Attestation statement: I reviewed the patient's lab results. 07/21/24 16:13 07/21/24 16:13 Labs: Lab Results 07/21/24 07/21/24 Range/Units 16:13 18:04 WBC 9.7 (4.8-10.8) X10*3/uL RBC 4.33 L (4.60-5.80) X10*6/uL Hgb 13.5 L (14.0-18.0) g/dl Hct 37.1 L (42.0-52.0) % MCV 85.7 (80.0-98.0) fL MCH 31.2 (27.0-33.0) pg MCHC 36.4 H (31.0-36.0) g/dl RDW 12.2 (11.0-16.0) % Plt Count 282 (160-400) X10*3/uL MPV 9.9 (9.4-12.4) fL Immature Gran % (Auto) 0.3 (0.0-0.4) % Neut % (Auto) 68.8 (45-73) % Lymph % (Auto) 22.3 (20-40) % Wood % (Auto) 8.3 (2-11) % Eos % (Auto) 0.1 (0-4) % Baso % (Auto) 0.2 (0-2) % Lymph # (Auto) 2.2 (1.2-4.9) X10*3/uL Wood # (Auto) 0.8 (0.1-1.2) X10*3/uL Eos # (Auto) 0.0 (0.0-0.4) X10*3/uL Baso # (Auto) 0.0 (0.0-0.2) X10*3/uL Abs Immat Gran (auto) 0.03 (0.00-0.03) X10*3/uL Absolute Neuts (auto) 6.7 (2.0-8.3) x10*3/uL Absolute Nucleated RBC 0.000 (0.0-0.012) X10*3/uL Nucleated RBC % (auto) 0.0 (0.0-0.2) /100WBC Sodium 140 (135-145) mmol/L Potassium 3.5 (3.3-5.1) mmol/L Chloride 104 (96-108) mmol/L Carbon Dioxide 23 (22-29) mmol/L Anion Gap 17 (12-20) BUN 13 (9-16) mg/dL Creatinine 0.90 (0.5-1.4) mg/dL Estim Creat Clear Calc 121.5 Estimated GFR > 60 Random Glucose 107 (60-115) mg/dL Lactic Acid 1.1 (0.5-2.0) mmol/L Calcium 10.0 D (8.4-10.2) mg/dL Magnesium 1.9 (1.6-2.6) mg/dL Total Bilirubin 0.5 (0.0-1.0) mg/dL Direct Bilirubin 0.2 (0.0-0.5) mg/dL AST 23 (5-37) U/L ALT 16 (0-40) U/L Alkaline Phosphatase 97 (39-117) U/L Troponin I High Sens 5.2 D (<3.5-35.0) ng/L Total Protein 7.3 (6.5-8.0) g/dL Albumin 4.7 (3.5-5.0) g/dL Urine Color Dark Yellow Urine Appearance Turbid Urine pH 5.5 (5.0-9.0) Ur Specific [place] >= 1.030 H (1.005-1.025) Urine Protein 100 (2+) H (Neg-Trace) mg/dL Urine Glucose (UA) Negative (Negative) mg/dL Urine Ketones 40 (Negative) mg/dL Urine Blood Negative (Negative) Urine Nitrite Negative (Negative) Ur Leukocyte Esterase Negative (Negative) Urine RBC 6-10 H (0-2) /HPF Urine WBC 0-5 (0-5) /HPF Ur Squamous Epith Cells 6-10 (0-2) /HPF Calcium Oxalate Crystal Present Urine Bacteria None Seen (None Seen) Hyaline Casts >20 (0-2) /LPF Urine Opiates Screen Not Detected (Not Detect) Ur Buprenorphine Scrn Not Detected (Not Detect) ng/mL Ur Oxycodone Screen Not Detected (Not Detect) ng/mL Urine Methadone Screen Not Detected (Not Detect) ng/mL Urine Fentanyl Screen Not Detected (Not Detect) Ur Barbiturates Screen Not Detected (Not Detect) Ur Phencyclidine Scrn Not Detected (Not Detect) Ur Amphetamines Screen Not Detected (Not Detect) U Benzodiazepines Scrn Not Detected (Not Detect) Urine Cocaine Screen POSITIVE H (Not Detect) U Marijuana (THC) Screen POSITIVE H (Not Detect) Ethyl Alcohol < 10 mg/dL Critical Care Time Critical Care Time Critical Care Time: Yes Total Critical Care Time: 60 Attestation: I have personally provided critical care time. Time includes review of lab data, radiology results, discussion with consultants, and monitoring for potential decompensation. Intervention performed as documented. Discharge Plan Discharge Clinical Impression: Cocaine use disorder Patient Disposition: Still a Patient Instructions: Cocaine Abuse (ED) Prescriptions: No Action hydroxyzine HCl 50 mg tablet 50 mg PO TID PRN (Reason: Anxiety) Qty: 270 0RF risperidone 2 mg tablet 2 mg PO BID Qty: 180 0RF propranolol 20 mg tablet 20 mg PO TID Qty: 270 0RF aripiprazole 15 mg tablet 15 mg PO DAILY Qty: 90 0RF Print Language: Estonian
[2024-07-21 16:19] LABS: MANUAL DIFF FLAG NO
[2024-07-21 16:22] LABS: Basophils Percent Auto 0.2 % (0-2); Eosinophils Percent Auto 0.1 % (0-4); Hematocrit 37.1 % (42.0-52.0); Hemoglobin 13.5 g/dl (14.0-18.0); Imm Gran Abs Auto 0.03 X10*3/uL (0.00-0.03); Imm Gran Pct Auto 0.3 % (0.0-0.4); Lymphocytes Absolute Auto 2.2 X10*3/uL (1.2-4.9); Lymphocytes Percent Auto 22.3 % (20-40); Mean Corpuscular HGB Conc 36.4 g/dl (31.0-36.0); Mean Corpuscular Hemoglobin 31.2 pg (27.0-33.0); Mean Corpuscular Volume 85.7 fL (80.0-98.0); Mean Platelet Volume 9.9 fL (9.4-12.4); Monocytes Absolute Auto 0.8 X10*3/uL (0.1-1.2); Monocytes Percent Auto 8.3 % (2-11); Neutrophils Absolute Auto 6.7 x10*3/uL (2.0-8.3); Neutrophils Percent Auto 68.8 % (45-73); Platelet Count 282 X10*3/uL (160-400); Red Blood Count 4.33 X10*6/uL (4.60-5.80); Red Cell Distribution Width 12.2 % (11.0-16.0); White Blood Count 9.7 X10*3/uL (4.8-10.8)
[2024-07-21 16:32] LABS: Lactic Acid 1.1 mmol/L (0.5-2.0)
[2024-07-21 16:40] LABS: Alanine Aminotransferase 16 U/L (0-40); Albumin Level 4.7 g/dL (3.5-5.0); Alkaline Phosphatase 97 U/L (39-117); Anion Gap 17 (12-20); Aspartate Amino Transferase 23 U/L (5-37); Bilirubin Direct 0.2 mg/dL (0.0-0.5); Bilirubin Total 0.5 mg/dL (0.0-1.0); Blood Urea Nitrogen 13 mg/dL (9-16); Carbon Dioxide 23 mmol/L (22-29); Chloride 104 mmol/L (96-108); Creatinine Clr Calc Pharmacy 121.5; Estimated Glomerular Filt Rate > 60; Ethanol < 10 mg/dL; Glucose Random 107 mg/dL (60-115); Magnesium 1.9 mg/dL (1.6-2.6); Potassium 3.5 mmol/L (3.3-5.1); Sodium 140 mmol/L (135-145); Total Protein 7.3 g/dL (6.5-8.0)
[2024-07-21 16:44] LABS: Troponin-I High Sensitivity 5.2 ng/L (<3.5-35.0)
[2024-07-21 18:16] LABS: Appearance Urine Turbid; Color Urine Dark Yellow; Glucose Urine UA Negative (Negative); Leukocyte Esterase Urine Negative (Negative); Nitrite Urine Negative (Negative); PH 5.5 (5.0-9.0); Specific Gravity - Urine >= 1.030 (1.005-1.025); UMIC TRIGGER UACC YES; Urine Blood Negative (Negative); Urine Ketones 40 mg/dL (Negative); Urine Protein 100 (2+) mg/dL (Neg-Trace)
[2024-07-21] MEDS: Nicotine Polacrilex 2 MG GUM BUCCAL (18:18)
[2024-07-21 18:19] VITALS: BP 126/73; PULSE 99; RESP 18; TEMP 37.1; O2SAT 98
--- NOTE | 2024-07-21 18:20 | PC.NURSE ---
Patient arrived via ems from home after a witnessed seizure. Upon arrival to ED patient tacycardic with dilated pupils. Patient difficult to engage in conversation , declining to put phone down to speak with staff. States he ate about 2 grams of cocaine, states unable to snort d/t a hole on the inside of his nose. 20g IV in right AC. Patient with back brace on , states he broke his back about 1 month ago when he jumped out of a window. Reports chronic pain in back since fall but no new pain. Reports hx of 1 other seizure about 1 month ago. Mom at bedside asking for patient to be admitted, dr. murillo aware.
[2024-07-21 18:22] LABS: Amphetamine Screen Urine Not Detected (Not Detect); Barbiturates, Urine Not Detected (Not Detect); Benzodiazepines Screen Urine Not Detected (Not Detect); Buprenorphine Scr Not Detected (Not Detect); Cannabinoid Screen Urine POSITIVE (Not Detect); Cocaine Screen Urine POSITIVE (Not Detect); Fentanyl, urine Not Detected (Not Detect); Methadone Screen, Urine Not Detected (Not Detect); Opiate Screen Urine Not Detected (Not Detect); Oxycodone Screen Urine Not Detected (Not Detect); Phencyclidine Screen Urine Not Detected (Not Detect)
[2024-07-21 19:08] VITALS: BP 124/79; PULSE 102; RESP 18; TEMP 37.1; O2SAT 98
[2024-07-21 20:11] LABS: Bacteria Urine None Seen (None Seen); Calcium Oxalate Crystals Urine Present; Hyaline Casts Urine >20 /LPF (0-2); WBC Urine 0-5 /HPF (0-5)
[2024-07-21 22:06] VITALS: BP 111/65; PULSE 77; RESP 18; O2SAT 97
--- NOTE | 2024-07-22 03:10 | PC.NURSE ---
received report Jeri LUNDBERG, pt came from the pod, and is now in the hallway, pt has sitter with him
[2024-07-22 06:00] VITALS: RESP 16
--- NOTE | 2024-07-22 07:27 | PC.NURSE ---
Assumed care of patient at 0645, patient appears to be in no apparent distress this am, sitting with eyes closed on bed in BH 2. Patient offers no complaints at this time. Continue plan of care for CARE team re-eval today
--- NOTE | 2024-07-22 11:37 | MHC.CARE ---
Patient evaluated by the CARE Team, at this time disposition is for inpatient psychiatric treatment. ED provider Dr. Orantes updated Psychiatry consult in place to resume medications patient stopped taking one week ago.
[2024-07-22 17:23] VITALS: BP 139/79; PULSE 90; RESP 18; TEMP 37; O2SAT 98
[2024-07-22 20:32] VITALS: BP 139/79; PULSE 90
[2024-07-22] MEDS: risperiDONE 2 MG TABLET PO (20:32)
[2024-07-22] MEDS: Propranolol HCL 20 MG TABLET PO (20:32)
[2024-07-23 01:35] VITALS: BP 127/85; PULSE 90; RESP 17; TEMP 36.8; O2SAT 99
--- NOTE | 2024-07-23 06:03 | PC.NURSE ---
Patient slept through the night, no distress observed/reported, no behavior and safety concerns at this time, meds and meals compliant, disposition per care team is section 12 inpatient bed search, VSS, will continue to monitor
--- NOTE | 2024-07-23 06:59 | PC.NURSE ---
Assumed care of patient at 0645, patient appears to be sleeping, respirations even and unlabored, no apparent distress noted. Continue plan of care for inpatient bedsearch at this time
[2024-07-23] MEDS: Propranolol HCL 20 MG TABLET PO ×3 (08:33→20:11)
[2024-07-23] MEDS: hydrOXYzine HCL 50 MG TABLET PO (08:33)
[2024-07-23] MEDS: Cyclobenzaprine HCl 10 MG TABLET PO (08:56)
[2024-07-23] MEDS: Acetaminophen 325 MG TABLET 975 MG PO (08:57)
[2024-07-23] MEDS: Ibuprofen 600 MG TABLET PO (08:57)
[2024-07-23 10:11] VITALS: BP 118/70; PULSE 87; RESP 17; TEMP 36.6; O2SAT 98
--- NOTE | 2024-07-23 10:20 | PM.PSYCN ---
History of Present Illness Date of Service: 07/23/24 Chief Complaint: Sz post cocaine use Reason for Consult: assessment Requesting physician: Erika Orantes Discussed with referring provider: No Sources of Information: patient interviewed, chart reviewed and crisis/core team assessment reviewed HPI Narrative: Pt is a 23 yo with hx of psychotic symptoms, possibly bipolar disorder and severe IV cocaine addiction who was brought to ED by friend following a cocaine induced seizure. Pt medically cleared. Pt's mother reports there is a pending Section 35. In ED pt talked about seeing fangs on his cat and wondering if certain tatoos have appeared that weren't there before. Pt reports he's been in/out of rehab and detox all summer. He relapsed heavily for the past month injecting cocain. About 2-3 weeks ago, while high, he jumped out of the 2nd floor of his apartment and fractured L2 vertebra, now wearing a brace. He explains he does not remember it or why he jumped and agrees it was only because he was intoxicated; he says that was scary... and is glad he did not or end up paralyzed. He understands that this recent seizure was cocaine induced. Still he says he's not ready to quit. Pt reports his cat grew fangs and he's worried he has woken up in another world. Pt however accepted the possibility that the only reason he thinks this is because he was high on cocaine and off his Abilfiy for a week. He denies any SI/HI; denies any AVH but says he had them earlier (though says he only ever has AH when intoxicated). Past Psychiatric History: No inpatient episodes for bipolar disorder, the patient can recall. Denies any history of suicide attempts. No history of psychosis when off substances. Does not currently have a psychiatry prescriber. Reports having a therapist. Primary care provider prescribes Risperdal 2 mg twice daily Medical Evaluation Reviewed: Yes PMFSH Medical History Cocaine use Bipolar disorder Polysubstance use disorder Social History: lives alone. Reports being in between jobs currently. Mom supportive. Diagnostics Vital Signs (24Hr): Vital Signs - 24 hr 07/22/24 17:23 07/22/24 20:32 07/23/24 01:35 Temperature 98.6 F 98.2 F Pulse Rate 90 90 90 Respiratory Rate 18 17 Blood Pressure 139/79 139/79 127/85 Pulse Oximetry 98 99 Oxygen Delivery Method Room Air Room Air 07/23/24 10:11 Temperature 97.8 F Pulse Rate 87 Respiratory Rate 17 Blood Pressure 118/70 Pulse Oximetry 98 Oxygen Delivery Method Room Air BMI result Body Mass Index 22.8 Labs 07/21/24 16:13 07/21/24 16:13 Labs: Laboratory Results - last 48 hr 07/21/24 07/21/24 16:13 18:04 WBC 9.7 RBC 4.33 L Hgb 13.5 L Hct 37.1 L MCV 85.7 MCH 31.2 MCHC 36.4 H RDW 12.2 Plt Count 282 MPV 9.9 Immature Gran % (Auto) 0.3 Neut % (Auto) 68.8 Lymph % (Auto) 22.3 [place] % (Auto) 8.3 Eos % (Auto) 0.1 Baso % (Auto) 0.2 Lymph # (Auto) 2.2 [place] # (Auto) 0.8 Eos # (Auto) 0.0 Baso # (Auto) 0.0 Abs Immat Gran (auto) 0.03 Absolute Neuts (auto) 6.7 Absolute Nucleated RBC 0.000 Nucleated RBC % (auto) 0.0 Sodium 140 Potassium 3.5 Chloride 104 Carbon Dioxide 23 Anion Gap 17 BUN 13 Creatinine 0.90 Estim Creat Clear Calc 121.5 Estimated GFR > 60 Random Glucose 107 Lactic Acid 1.1 Calcium 10.0 D Magnesium 1.9 Total Bilirubin 0.5 Direct Bilirubin 0.2 AST 23 ALT 16 Alkaline Phosphatase 97 Troponin I High Sens 5.2 D Total Protein 7.3 Albumin 4.7 Urine Color Dark Yellow Urine Appearance Turbid Urine pH 5.5 Ur Specific [place] >= 1.030 H Urine Protein 100 (2+) H Urine Glucose (UA) Negative Urine Ketones 40 Urine Blood Negative Urine Nitrite Negative Ur Leukocyte Esterase Negative Urine RBC 6-10 H Urine WBC 0-5 Ur Squamous Epith Cells 6-10 Calcium Oxalate Crystal Present Urine Bacteria None Seen Hyaline Casts >20 Urine Opiates Screen Not Detected Ur Buprenorphine Scrn Not Detected Ur Oxycodone Screen Not Detected Urine Methadone Screen Not Detected Urine Fentanyl Screen Not Detected Ur Barbiturates Screen Not Detected Ur Phencyclidine Scrn Not Detected Ur Amphetamines Screen Not Detected U Benzodiazepines Scrn Not Detected Urine Cocaine Screen POSITIVE H U Marijuana (THC) Screen POSITIVE H Ethyl Alcohol < 10 Imaging Radiology Impressions: ITS Impressions Lumbar Spine X-Ray 07/23/24 08:52 IMPRESSION: Significant burst fracture of L2 with possible canal stenosis Electronically signed by: Dona Santoro MD 07/23/2024 09:46 AM EDT RP Medications Medications Current Medications Hydroxyzine HCl (Hydroxyzine Hcl 50 Mg Tablet) 50 mg PO TID PRN PRN Reason: Anxiety Last Admin: 07/23/24 08:33 Dose: 50 mg Propranolol HCl (Propranolol Hcl 20 Mg Tablet) 20 mg PO TID MADISON; Protocol Last Admin: 07/23/24 08:33 Dose: 20 mg Risperidone (Risperidone 2 Mg Tablet) 2 mg PO BID [place]ISON Last Admin: 07/23/24 08:33 Dose: Not Given Allergies Allergies Allergy/AdvReac Type Severity Reaction Status Date / Time amoxicillin Allergy Swelling Verified 07/21/24 15:46 Penicillins Allergy Swelling Verified 07/21/24 15:46 Assessment & Plan Assessment & Plan (1) Cocaine use disorder: Status: Acute Code(s): F14.10 - Cocaine abuse, uncomplicated (2) Bipolar 2 disorder: Status: Acute Code(s): F31.81 - Bipolar II disorder Plan Pt is a 23 yo with hx of psychotic symptoms, possibly bipolar disorder and severe IV cocaine addiction who was brought to ED by friend following a cocaine induced seizure. Pt medically cleared. Pt's mother reports there is a pending Section 35. In ED pt talked about seeing fangs on his cat and wondering if certain tatoos have appeared that weren't there before. Pt reports he's been in/out of rehab and detox all summer. He relapsed heavily for the past month injecting cocain. About 2-3 weeks ago, while high, he jumped out of the 2nd floor of his apartment and fractured L2 vertebra, now wearing a brace. He explains he does not remember it or why he jumped and agrees it was only because he was intoxicated; he says that was scary... and is glad he did not or end up paralyzed. He understands that this recent seizure was cocaine induced. Still he says he's not ready to quit. Pt reports his cat grew fangs and he's worried he has woken up in another world. Pt however accepted the possibility that the only reason he thinks this is because he was high on cocaine and off his Abilfiy for a week. He denies any SI/HI; denies any AVH but says he had them earlier (though says he only ever has AH when intoxicated). Impression: pt is returning back to baseline. Most of patient delusional thinking is likely substanced induced; they are resolving and pt is responding to reality testing. He may also have some delusional thinking at baseline, hence outpt prescriptions for anti-psychotics. He is now being restarted on Abilify. No SI/HI. He does not meet criteria for involuntary admission. He does however have a serious cocaine addiction that leads him to [facility]ms [facility] and has no plans of pursuing sobriety. PLAN Coat Repair Inspector agrees with Section 35. 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 Patient educated on: diagnosis, medication risk/benefits and substance abuse Informed Consent: understands and further education needed
--- NOTE | 2024-07-23 14:11 | PC.NURSE ---
awaiting medications from pharmacy
[2024-07-23 15:58] VITALS: BP 141/73; PULSE 92; RESP 16; TEMP 36.8; O2SAT 99
--- NOTE | 2024-07-23 19:12 | PC.NURSE ---
patient appears to remain at rest presently respirations are even and unlabored patient appears in no distress.
[2024-07-23 20:11] VITALS: BP 141/73
--- NOTE | 2024-07-24 00:44 | PC.NURSE ---
client gets up and asks for dc, re-checked with clinician regarding one assessment per day and reiterated to cleint theyd have to be reassessed in am.
[2024-07-24 09:31] VITALS: BP 135/82; PULSE 79; RESP 14; TEMP 37.2; O2SAT 96
[2024-07-24] MEDS: Propranolol HCL 20 MG TABLET PO (09:41)
[2024-07-24] MEDS: ARIPiprazole 15 MG TABLET PO (09:41)
[2024-07-24 09:58] VITALS: BP 135/82; PULSE 79; RESP 14; TEMP 37.2; O2SAT 96
== END 2024-07-24 10:02 ==
PROVIDERS: Emergency Provider Emergency Medicine
DX: F14.10 Cocaine abuse, uncomplicated (principal); F31.81 Bipolar II disorder; R44.2 Other hallucinations; G89.29 Other chronic pain; M54.50 Low back pain, unspecified; F19.10 Other psychoactive substance abuse, uncomplicated; Z79.899 Other long term (current) drug therapy
CPT/HCPCS: 36415; 72100; 80048; 80076; 80307; 81001; 83605; 83735; 84484; 85025; 93005; 99285; S9485

== ENCOUNTER → 2024-07-21 15:49 | Outpatient (BNV) | payer BC, SELFPAY | PROVIDERS: Emergency Provider Emergency Medicine; Visit Provider Psychiatry & Neurology Psychiatry | DX: F14.10 Cocaine abuse, uncomplicated (principal); F31.81 Bipolar II disorder | CPT/HCPCS: 99283 ==

== ENCOUNTER 2025-01-14 14:25 | Emergency (ER) | payer OTHER, SELFPAY ==
--- NOTE | ~2025-01-14 | CT_ITS ---
CLINICAL HISTORY: [facility] CT angiography head and neck with contrast. 3D Postprocessing. Comparison: CT/SR - CT HEAD/BRAIN WO IV CON - 01/14/25 15:[address]/SR - CT HEAD/BRAIN WO IV CON - 06/16/24 19:05 EDT Findings: Aortic arch and cervical great vessels are patent. Intracranial arteries are patent. No aneurysm, dissection, or occlusion. No abnormal intracranial enhancement. The visualized thyroid gland is unremarkable. No cervical mass or fluid collection. Lung apices clear. Subacute to chronic fractures of the left posterior 4th and 5th ribs. IMPRESSION: 1. No acute intracranial or cervical vascular findings. No aneurysm. 2. Subacute to chronic fractures of left posterior 4th and 5th ribs. This document has been electronically signed by: Travis Martinez MD on 01/14/2025 19:00:59
--- NOTE | ~2025-01-14 | CT_ITS ---
CLINICAL HISTORY: seizure, head strike CT head without contrast Comparison: CT/SR - CT HEAD/BRAIN WO IV CON - 06/16/24 19:05 EDT Findings: Trace sulcal hyperintensity in the right inferior frontal lobe may be artifact versus trace subarachnoid hemorrhage ( series 4, image 21/31, series 9 image 106/145 and series 8 image 49/190 ). No mass effect. Liang-white matter differentiation is preserved. Mild mucosal thickening in the ethmoid air cells. The orbits are within normal limits. No skull fracture. IMPRESSION: 1. Questionable trace right inferior frontal subarachnoid hemorrhage without mass effect. This document has been electronically signed by: Travis Martinez MD on 01/14/2025 16:58:04
--- NOTE | ~2025-01-14 | CT_ITS ---
CLINICAL HISTORY: Questionable subarachnoid hemorrhage CT head without contrast Comparison: CT/SR - CT HEAD/BRAIN WO IV CON - 01/14/25 15:25 EST Findings: No intra-axial mass, midline shift, hydrocephalus, or acute hemorrhage. Specifically, in the region of question in the right frontal sulci there is no evidence of subarachnoid hemorrhage. No significant atrophy-like change or white matter disease. Mucosal thickening throughout the paranasal sinuses. The orbits are unremarkable. There is no acute fracture. IMPRESSION: 1. No acute intracranial findings. This document has been electronically signed by: Yair Kyle MD on 01/15/2025 00:33:49
--- NOTE | 2025-01-14 14:27 | ED_ITS ---
HPI - General Adult General Chief complaint: ETOH/Substance Use Stated complaint: CRISIS, ERRATIC BEHAVIOR S/P DRUG USE PER EMS Time Seen by Provider: 01/14/25 14:27 Source: EMS, RN notes reviewed and old records reviewed Mode of arrival: EMS Limitations: altered mental status History of Present Illness ED Provider: Kathryn THOMPSON narrative: Patient is a 24-year-old male with history of bipolar 2 disorder, cocaine use disorder presenting to the ED via EMS after being found acting erratic and panicky in the lobby of his apartment. Patient admits to using cocaine today. Upon arrival to ED while changing into hospital garb, patient witnessed having seizure like activity. No head strike or loss of consciousness. Patient denies any other drug or alcohol use today. MD complaint: erratic behavior Related Data Home Medications ?Medication ?Instructions ?Recorded ?Confirmed calcitonin (salmon) 200 intranasal DAILY 07/22/24 07/22/24 unit/actuation nasal spray propranolol 20 mg tablet 20 mg PO TID 07/22/24 07/22/24 risperidone 2 mg tablet 2 mg PO BID 07/22/24 07/22/24 Previous Rx's ?Medication ?Instructions ?Recorded hydroxyzine HCl 50 mg tablet 50 mg PO TID PRN Anxiety #270 tabs 06/17/24 Allergies Allergy/AdvReac Type Severity Reaction Status Date / Time amoxicillin Allergy Swelling Verified 01/14/25 14:37 Penicillins Allergy Swelling Verified 01/14/25 14:37 Review of Systems 2 Review of Systems: As per HPI Yes all other systems are reviewed and are negative Constitutional: Constitutional: Reports as per HPI PMF Past Medical History Medical History Cocaine use Bipolar disorder Polysubstance use disorder Social History Social History Household Members: Unknown / Unable to assess Housing: Unknown / Unable to assess Do you presently have visiting nurse or other home services: No Alcohol intake: former Patient Tobacco Use Status: Refuse Tobacco use screen Substance Use Type: Crack/Cocaine Advance Directives: No Advance Directives Information Provided: Yes Do you have a plan to hurt others: No Plan service: No Physical Exam ED Vital Signs: Vital Signs - 24 hr 01/14/25 14:32 01/14/25 14:56 Temperature 98.0 F Pulse Rate 147 H 144 H Respiratory Rate 18 21 H Blood Pressure 150/93 H 166/93 H Pulse Oximetry 93 98 Oxygen Delivery Method Room Air BMI result Body Mass Index 30.9 Vital signs have been reviewed and appear to be correct. Blood pressure elevated. Heart rate tachycardic. Respiratory rate normal. Temperature normal. Oxygen saturation normal. Const General: cooperative and healthy appearing Orientation/consciousness: oriented to person [facility] Head: Yes normocephalic and Yes atraumatic Ears: external ears normal General nose exam: Normal external nose present Face and sinus: Yes face symmetric Mouth: oropharynx normal and moist mucous membranes Throat: Yes uvula midline Eyes Pupils: Equal, round and reactive pupils present and Dilated pupils bilaterally Neck Neck: Yes normal visual inspection and Yes supple Resp Effort & Inspection: normal respiratory effort and able to speak in complete sentences Auscultation: clear to auscultation bilaterally Cardio Rate: regular rate Rhythm: regular rhythm Heart sounds: S1 normal heart sound present and S2 normal heart sound present GI Palpation (GI): Soft to palpation and nontender Auscultation: normoactive bowel sounds General: Yes no CVA tenderness Back/Spine/Pelvis Back: no CVA tenderness Skin General skin exam: elasticity normal and turgor normal Neuro General: oriented to person, moves all extremities, no focal motor deficits and CN's II-XI intact bilaterally Cranial nerves: Yes Equal, round and reactive pupils present Cognition (Neuro): normal cognition Extrem General: Yes full ROM, Yes no pedal edema and Yes no calf tenderness Psych Mental Status: mental status grossly normal Affect: normal affect Thought process: Normal thought process present Course Reevaluation(s) Reevaluation #1: Notified by pod staff that patient having seizure like activity, no head strike, lasted approximately 2 minutes, not witnessed by me. Patient confused on my arrival. Patient transferred out of pod to main ED, IV access established, ativan ordered, CT head ordered. Time: 14:54 Medications Administered Discontinued Medications Generic Name Dose Route Start Last Admin Trade Name Freq PRN Reason Stop Dose Admin Lactated Ringer's 1,000 mls @ 999 mls/hr 01/14/25 15:00 01/14/25 14:55 Lr IV 01/14/25 16:00 999 mls/hr .Q1H1M MADISON Administration Lorazepam 2 mg 01/14/25 14:44 01/14/25 14:54 Lorazepam 2 Mg/Ml Vial IVPUSH 01/14/25 14:45 2 mg ONCE ONE Administration Lorazepam 2 mg 01/14/25 15:10 01/14/25 15:14 Lorazepam 2 Mg/Ml Vial IVPUSH 01/14/25 15:11 2 mg ONCE ONE Administration Medical Decision Making Medical Decision Making [facility] Narrative: Patient is a 24-year-old male with history of bipolar 2 disorder, cocaine use disorder presenting to the ED via EMS after being found acting erratic and panicky in the lobby of his apartment. On exam patient is awake, A+Ox3, tachycardic, BP elevated, VS otherwise WNL, afebrile, normal neurological exam without focal deficits, physical exam findings as above. Given reported symptoms and physical exam findings, initial differential includes but is not limited to drug or alcohol intoxication, seizure, bipolar disorder, electrolyte abnormality, SC, cardiac arrhythmia. Labs notable for leukocytosis, significantly elevated lactic, mildly elevated CK. IV fluids and additional ativan ordered. Patient signed out to BERNADETTE Rasheed. Differential Diagnosis Differential Diagnoses: The differential diagnosis associated with the presentation includes As per [facility] Admission/Observation Consideration of admission/observation: Escalation of care including admission/observation considered Consult Healthcare Provider Management of the patient was discussed with: Behavioral Health Provider Lab Data [facility] Lab Attestation statement: I reviewed the patient's lab results. as per [facility] 01/14/25 14:49 01/14/25 14:49 Labs: Lab Results 01/14/25 01/14/25 Range/Units 14:49 14:49 WBC 18.9 H (4.8-10.8) X10*3/uL RBC 4.72 (4.60-5.80) X10*6/uL Hgb 14.8 (14.0-18.0) g/dl Hct 44.5 (42.0-52.0) % MCV 94.3 (80.0-98.0) fL MCH 31.4 (27.0-33.0) pg MCHC 33.3 (31.0-36.0) g/dl RDW 13.7 (11.0-16.0) % Plt Count 407 H D (160-400) X10*3/uL MPV 9.8 (9.4-12.4) fL Immature Gran % (Auto) 0.4 (0.0-0.4) % Neut % (Auto) 88.5 H (45-73) % Lymph % (Auto) 6.1 L (20-40) % [place] % (Auto) 4.7 (2-11) % Eos % (Auto) 0.0 (0-4) % Baso % (Auto) 0.3 (0-2) % Lymph # (Auto) 1.2 (1.2-4.9) X10*3/uL [place] # (Auto) 0.9 (0.1-1.2) X10*3/uL Eos # (Auto) 0.0 (0.0-0.4) X10*3/uL Baso # (Auto) 0.1 (0.0-0.2) X10*3/uL Abs Immat Gran (auto) 0.08 H (0.00-0.03) X10*3/uL Absolute Neuts (auto) 16.8 H (2.0-8.3) x10*3/uL Absolute Nucleated RBC 0.000 (0.0-0.012) X10*3/uL Nucleated RBC % (auto) 0.0 (0.0-0.2) /100WBC Sodium 140 (135-145) mmol/L Potassium 3.9 (3.3-5.1) mmol/L Chloride 104 (96-108) mmol/L Carbon Dioxide 16 L (22-29) mmol/L Anion Gap 24 H (12-20) BUN 13 (9-16) mg/dL Creatinine 1.11 (0.5-1.4) mg/dL Estim Creat Clear Calc 98.1 Estimated GFR > 60 Random Glucose 156 H (60-115) mg/dL Lactic Acid 13.2 H* (0.5-2.0) mmol/L Calcium 9.9 (8.4-10.2) mg/dL Total Bilirubin 0.3 (0.0-1.0) mg/dL AST 40 H (5-37) U/L ALT 26 (0-40) U/L Alkaline Phosphatase 80 (39-117) U/L Total Creatine Kinase 344 H (38-174) U/L Total Protein 8.9 H (6.5-8.0) g/dL Albumin 5.0 (3.5-5.0) g/dL Salicylates < 5.0 L Cancelled (15-30) mg/dL Acetaminophen < 3 (<30) mcg/mL Ethyl Alcohol < 10 mg/dL Independent Interpretation I performed an independent interpretation of an: EKG (sinus tachycardic, rate 139bpm, normal [place] interval, slightly prolonged QTc) External Record Review External record reviewed: Inpatient record, Office record and Outpatient record Discharge Plan Discharge Clinical Impression: Cocaine use disorder Patient Disposition: Still a Patient Prescriptions: No Action hydroxyzine HCl 50 mg tablet 50 mg PO TID PRN (Reason: Anxiety) Qty: 270 0RF calcitonin (salmon) 200 unit/actuation spray,non-aerosol intranasal DAILY propranolol 20 mg tablet 20 mg PO TID risperidone 2 mg tablet 2 mg PO BID Print Language: O[place]i
[2025-01-14 14:32] VITALS: BP 150/93; BP 164/112; PULSE 146; PULSE 147; RESP 18; TEMP 36.7; O2SAT 93; O2SAT 94; BMI 30.9
--- NOTE | 2025-01-14 14:43 | PC.NURSE ---
Patient changed over was walking back to chair and started convulsing on bowling floor desk clerk with patient. Patient was lowered to the floor did not hit his head, activity lasted approximately 1 minute. Vitals were as follows 154/85, 99% on room air, 20 resp, pulse 131. Charge nurse was notified and Dr. Orantes assessed pt. Patient was taken to main ed.
--- NOTE | 2025-01-14 14:49 | MHC.EDTECH ---
This tech was assisting patient with removing jewelry, while removing earring patient started to hunch over, grunted, and then body appeared to convulse. This tech lowered patient to the ground protecting patient head. This tech called for assistance of RN. This tech held patients in left sided position with head in lap while patient was convulsing. Dr. Orantes arrived and assessed patient.
--- NOTE | 2025-01-14 14:51 | MHC.EDTECH ---
Patient belongings itemized and secured in locker #9 in pod
--- NOTE | 2025-01-14 14:52 | ECG_ITS ---
Test Reason : TACHY/ SEIZURE Blood Pressure : */* mmHG Vent. Rate : 139 BPM Atrial Rate : 139 BPM P-R Int : 122 ms QRS Dur : 100 ms QT Int : 304 ms P-R-T Axes : 69 42 36 degrees QTcB Int : 462 ms Sinus tachycardia Otherwise normal ECG When compared with ECG of 21-Jul-2024 15:56, No significant change was found Referred By: Jackelin Peralta Electronically Signed By: ANIKET DECKER
[2025-01-14 14:54] LABS: MANUAL DIFF FLAG NO
[2025-01-14] MEDS: LORazepam 2 MG/ML VIAL IVPUSH ×3 (14:54→17:54)
[2025-01-14] MEDS: Lactated Ringers 1,000 ML 999 ML IV ×2 (14:55→16:59)
[2025-01-14 14:56] VITALS: BP 166/93; PULSE 144; RESP 21; O2SAT 98
[2025-01-14 14:57] LABS: Basophils Absolute Auto 0.1 X10*3/uL (0.0-0.2); Basophils Percent Auto 0.3 % (0-2); Hematocrit 44.5 % (42.0-52.0); Hemoglobin 14.8 g/dl (14.0-18.0); Imm Gran Abs Auto 0.08 X10*3/uL (0.00-0.03); Imm Gran Pct Auto 0.4 % (0.0-0.4); Lymphocytes Absolute Auto 1.2 X10*3/uL (1.2-4.9); Lymphocytes Percent Auto 6.1 % (20-40); Mean Corpuscular HGB Conc 33.3 g/dl (31.0-36.0); Mean Corpuscular Hemoglobin 31.4 pg (27.0-33.0); Mean Corpuscular Volume 94.3 fL (80.0-98.0); Mean Platelet Volume 9.8 fL (9.4-12.4); Monocytes Absolute Auto 0.9 X10*3/uL (0.1-1.2); Monocytes Percent Auto 4.7 % (2-11); Neutrophils Absolute Auto 16.8 x10*3/uL (2.0-8.3); Neutrophils Percent Auto 88.5 % (45-73); Platelet Count 407 X10*3/uL (160-400); Red Blood Count 4.72 X10*6/uL (4.60-5.80); Red Cell Distribution Width 13.7 % (11.0-16.0); White Blood Count 18.9 X10*3/uL (4.8-10.8)
[2025-01-14 15:12] LABS: Acetaminophen LAB < 3 mcg/mL (<30); Salicylate < 5.0 mg/dL (15-30)
[2025-01-14 15:14] LABS: Alanine Aminotransferase 26 U/L (0-40); Alkaline Phosphatase 80 U/L (39-117); Anion Gap 24 (12-20); Aspartate Amino Transferase 40 U/L (5-37); Bilirubin Total 0.3 mg/dL (0.0-1.0); Blood Urea Nitrogen 13 mg/dL (9-16); Calcium 9.9 mg/dL (8.4-10.2); Carbon Dioxide 16 mmol/L (22-29); Chloride 104 mmol/L (96-108); Creatinine Clr Calc Pharmacy 98.1; Estimated Glomerular Filt Rate > 60; Ethanol < 10 mg/dL; Glucose Random 156 mg/dL (60-115); Potassium 3.9 mmol/L (3.3-5.1); Sodium 140 mmol/L (135-145); Total Protein 8.9 g/dL (6.5-8.0)
[2025-01-14 15:15] LABS: Lactic Acid 13.2 mmol/L (0.5-2.0)
[2025-01-14 16:04] LABS: Troponin-I High Sensitivity 22.6 ng/L (<3.5-35.0)
[2025-01-14 16:23] LABS: Influenza A PCR NEGATIVE (Negative); Influenza B PCR NEGATIVE (Negative); Resp Syncy Virus RNA Qual PCR NEGATIVE (Negative); SARS COV2 PCR INHOUSE NEGATIVE (Negative)
[2025-01-14 16:53] LABS: Reflex Lactate? Lactic Acid Added
[2025-01-14 17:17] LABS: Appearance Urine Cloudy; Color Urine Yellow; Glucose Urine UA Negative (Negative); Leukocyte Esterase Urine Negative (Negative); Nitrite Urine Negative (Negative); PH 5.5 (5.0-9.0); Specific Gravity - Urine 1.015 (1.005-1.025); UMIC TRIGGER UACC YES; Urine Blood Negative (Negative); Urine Ketones Negative (Negative); Urine Protein 30 (1+) mg/dL (Neg-Trace)
[2025-01-14 17:19] VITALS: BP 134/80; PULSE 117; RESP 16; TEMP 37.1; O2SAT 96
[2025-01-14 17:28] LABS: Amphetamine Screen Urine Not Detected (Not Detect); Bacteria Urine None Seen (None Seen); Barbiturates, Urine Not Detected (Not Detect); Benzodiazepines Screen Urine Not Detected (Not Detect); Buprenorphine Scr Not Detected (Not Detect); Cannabinoid Screen Urine POSITIVE (Not Detect); Cocaine Screen Urine POSITIVE (Not Detect); Fentanyl, urine Not Detected (Not Detect); Granular Casts Urine Present; Methadone Screen, Urine Not Detected (Not Detect); Opiate Screen Urine Not Detected (Not Detect); Oxycodone Screen Urine Not Detected (Not Detect); Phencyclidine Screen Urine Not Detected (Not Detect); RBC Urine 0-2 /HPF (0-2); Squamous Epithelial Cell Urine 0-2 /HPF (0-2); WBC Urine 0-5 /HPF (0-5)
[2025-01-14 17:34] LABS: ~Lactic Acid-LAB USE ONLY 1.6 mmol/L (0.5-2.0)
[2025-01-14] MEDS: iohexoL 350 MG/ML 100 ML INFUS..BTL IV (18:04)
--- NOTE | 2025-01-14 18:43 | PC.NURSE ---
MOTHER CALLED AND PT WAS DICHARGED FROM [facility] FOR BIPOLAR/MIGUELANGEL A FEW DAYS AGO [phone]
--- NOTE | 2025-01-14 19:49 | MHC.EDTECH ---
Pt getting upset about having to stay in room and not having phone. Removed residential roofer and getting naked. Pt instructed to put pants back on and get back in bed. RN aware.
[2025-01-14 19:53] VITALS: BP 136/88; PULSE 103; RESP 20; TEMP 36.5; O2SAT 98
[2025-01-14 23:35] VITALS: BP 115/64; PULSE 76; RESP 15; O2SAT 96
[2025-01-15 04:02] VITALS: BP 125/72; PULSE 57; RESP 16; TEMP 36.3; O2SAT 93
[2025-01-15] MEDS: LORazepam 1 MG TABLET 2 MG PO (08:05)
[2025-01-15] MEDS: Nicotine Polacrilex 2 MG GUM BUCCAL (08:05)
--- NOTE | 2025-01-15 08:06 | PC.NURSE ---
assumed care of patient at 0745, patient appears anxious about being in BH pod, asking whether or not he is on a section 12, inquiring about leaving. Pt aware that we are waiting on disposition from CARE team at this time. Pt medication with Ativan 2mg PO for anxiety as well as nicotine gum per patients request
[2025-01-15 10:59] VITALS: BP 109/66; PULSE 84; RESP 16; TEMP 36.3; O2SAT 99
--- NOTE | 2025-01-15 11:30 | MHC.RECOVRN ---
Met with pt in BH2 prior to dc after CARE Team cleared pt and requested additional resources for cocaine use. Pt laying in bed, eyes closed, wakes to voice and engages in conversation. Pt reports prior to this most recent use (2 grams cocaine, PO), last use was 12/15/24. Pt reports he has used IN in the past but has damage so typically uses it PO. Pt reports first rehab was in 2019. Longest period of recovery has been 1.5 years. Pt attributes time in recovery to support. Pt interested in support. Discussed recovery supports and options, pt very interested in [facility] [place]. Pt provided with recovery resources and encouraged to follow up with [facility]. Pt denies other questions or concerns at this time. RN and CARE Team aware.
== END 2025-01-15 11:01 | disposition home or self-care (01) ==
PROVIDERS: Registered Nurse Emergency; Emergency Provider Emergency Medicine
DX: S06.6XAA Traumatic subarachnoid hemorrhage with loss of consciousness status unknown, initial encounter (principal); F43.0 Acute stress reaction; F14.10 Cocaine abuse, uncomplicated; F91.9 Conduct disorder, unspecified; R00.0 Tachycardia, unspecified; R11.0 Nausea; X58.XXXA Exposure to other specified factors, initial encounter; Y93.9 Activity, unspecified; Y92.9 Unspecified place or not applicable; Y99.8 Other external cause status; Z03.818 Encounter for observation for suspected exposure to other biological agents ruled out; Z51.81 Encounter for therapeutic drug level monitoring; Z79.899 Other long term (current) drug therapy; Z71.51 Drug abuse counseling and surveillance of drug abuser
CPT/HCPCS: 0241U; 36415; 70450; 70496; 70498; 80053; 80143; 80179; 80307; 81001; 82550; 83605; 84484; 85025; 93005; 96361; 96374; 96376; 99285; J2060; J7120; Q9967; S9485

== ENCOUNTER → 2025-01-14 14:44 | Outpatient (BNV) | payer OTHER, SELFPAY | PROVIDERS: Emergency Provider Emergency Medicine; Visit Provider Radiology Diagnostic Radiology | DX: R56.9 Unspecified convulsions (principal); S09.90XA Unspecified injury of head, initial encounter | CPT/HCPCS: 70450; 70496; 70498 ==

== ENCOUNTER → 2025-01-14 14:52 | Outpatient (BNV) | payer OTHER, SELFPAY | PROVIDERS: Emergency Provider Emergency Medicine; Visit Provider Internal Medicine | DX: R00.0 Tachycardia, unspecified (principal) | CPT/HCPCS: 93010 ==